=== PATIENT | female | born 1960 | race Caucasian/White ===

== ENCOUNTER → 2017-02-16 | Outpatient (CLI) | payer OTHER ==
[~2017-02-16] MED LIST: ATV1 PO; CLX20; LEVO75TA33; MULT-506; OPTIRAY 320 IV PRN
--- NOTE | 2017-02-16 14:33 | DIAGNOSTIC IMAGING REPORT ---
ABDOMEN AND PELVIS CT WITH IV AND ORAL CONTRAST CT DOSE: 1501.75 mGy.cm HISTORY: ABDOMINAL BLOATING TECHNIQUE: Multiaxial CT images of the abdomen and pelvis were performed following the use of intravenous and oral contrast. COMPARISON STUDY: None. FINDINGS: The lung bases are clear. The liver, gallbladder, adrenal glands, and pancreas are unremarkable. There are few punctate calcified granulomas within the spleen. Suspect small left renal peripelvic cysts. No hydronephrosis. The kidneys enhance normally. No retroperitoneal lymphadenopathy. The uterus is surgically absent. There is a small soft tissue linear density extending from the vaginal cuff to the S1 vertebral body. This likely represents prior sacral colpopexy. The bladder is unremarkable. No pelvic free fluid. Prior gastric bypass. There is no contrast within the excluded portion of the stomach. No bowel wall thickening or obstruction. Normal appendix. Colonic diverticulosis. IMPRESSION: 1. No bowel wall thickening or obstruction. 2. Prior gastric bypass. 3. Colonic diverticulosis. 4. Normal appendix. Electronically signed by: Rodney Celis M.D. 02/16/2017 2:32 PM Dictated Date/Time: 02/16/2017 2:21 PM
== END | disposition home or self-care (01) ==
LOC: C.CTS 12:17
PROVIDERS: ATTEND Nurse Practitioner Family
DX: R14.0 Abdominal distension (gaseous) (principal); K57.30 Diverticulosis of large intestine without perforation or abscess without bleeding; Z98.84 Bariatric surgery status

== ENCOUNTER → 2017-03-19 | Outpatient (CLI) | payer OTHER ==
[~2017-03-19] MED LIST changes: -OPTIRAY 320 IV PRN
--- NOTE | 2017-03-19 14:17 | DIAGNOSTIC IMAGING REPORT ---
MRI LUMBAR SPINE WITHOUT IV CONTRAST CLINICAL HISTORY: Low back pain and bilateral lower extremity radiculopathy. COMPARISON STUDY: Abdominal CT dated 02/16/2017. TECHNIQUE: MRI of the lumbar spine is performed utilizing various T1 and T2-weighted sequences in the axial and sagittal planes. IV contrast was not administered for this examination. FINDINGS: Lumbar spine: Vertebral body height and alignment are maintained throughout the lumbar spine. Small anterior osteophytes are seen throughout. Marrow signal intensity is slightly heterogeneous. The transverse and spinous processes are intact as imaged. There is no evidence of spondylolysis. No destructive bony lesion is seen. Mild chronic degenerative endplate change is seen at L5-S1. A tiny hemangioma is seen in the body of L4. Intervertebral discs: There is degenerative disc desiccation and loss of height seen throughout the lumbar spine. Loss of height is greatest at L3-L4 and L4-L5. Spinal cord: The partially imaged spinal cord is normal in morphology and signal intensity. The conus medullaris terminates at the level of L2. The nerve roots of the cauda equina are normal in morphology. L1-L2: Unremarkable. L2-L3: There is minimal facet arthropathy of no confluence. The central canal and neural foramina are widely patent. A small facet joint effusion is seen on the right. L3-L4: There is minimal posterior disc bulge. There is no significant acquired compromise of the central canal. The minimum AP diameter measures 10.5 mm. There is mild bilateral subarticular stenosis. Facet arthropathy is of no consequence. The neural foramina are widely patent. L4-L5: There is a posterior disc bulge with annular fissure. In conjunction with hypertrophy of the ligamentum flavum there is minimal acquired compromise of the central canal at this level. The minimum AP canal diameter measures 7.5 mm. There is bilateral subarticular stenosis. This may impinge on the exiting right L4 nerve root. L5-S1: There is minimal posterior disc bulge. The central canal and neural foramina are widely patent. Facet arthropathy is of no confluence. Sacrum: The visualized sacrum is normal in morphology and signal intensity. There is a large Tarlov cyst eccentric to the right extending from S1 to S3. This measures 6 cm in length. Soft tissues: The paraspinous soft tissues are within normal limits. The partially imaged retroperitoneal structures are grossly normal but incompletely evaluated. IMPRESSION: 1. Mild lumbosacral spondylosis with mild acquired compromise of the central canal at L4-L5. See discussion for detailed level by level analysis. 2. No destructive bony process is seen. 3. A large sacral Tarlov cyst is identified. Dictated: 03/19/2017 1:38 PM Transcribed: 03/19/2017 2:16 PM [email or web address]_Holland Electronically signed by: Aniket Betancourt M.D. 03/19/2017 2:18 PM Dictated Date/Time: 03/19/2017 1:38 PM
== END | disposition home or self-care (01) ==
LOC: C.MRIBC 12:13
PROVIDERS: ATTEND Orthopaedic Surgery Orthopaedic Surgery of the Spine
DX: M51.26 Other intervertebral disc displacement, lumbar region (principal); M48.06 Spinal stenosis, lumbar region

== ENCOUNTER → 2017-11-11 | Outpatient (CLI) | payer OTHER ==
--- NOTE | 2017-11-11 13:47 | MAMMOGRAPHY REPORT ---
BILATERAL DIGITAL SCREENING MAMMOGRAM TOMOSYNTHESIS WITH CAD: 11/11/2017 CLINICAL HISTORY: Routine screening. Patient has no complaints. TECHNIQUE: Breast tomosynthesis in addition to standard 2D mammography was performed. Current study was also evaluated with a Computer Aided Detection (CAD) system. COMPARISON: Comparison is made to exams dated: 11/04/2016 mammogram, 10/30/2015 mammogram, 4 mammogram, 10/23/2013 mammogram, 10/20/2012 mammogram, and 10/19/2011 mammogram - [facility]. BREAST COMPOSITION: The tissue of both breasts is almost entirely fatty. FINDINGS: No suspicious masses, calcifications, or areas of architectural distortion are noted in ei ther breast. There has been no significant interval change compared to prior exams. A biopsy marker clip is again noted in the left central breast. IMPRESSION: ACR BI-RADS CATEGORY 2: BENIGN There is no mammographic evidence of malignancy. A 1 year screening mammogram is recommended. The pa tient will receive written notification of the results. Approximately 10% of breast cancers are not detected with mammography. A negative mammographic report should not delay biopsy if a clinically suggestive mass is present. Marcia Ta M.D. /:11/11/2017 08:30:46 Hog Man: Savi Dawn, [facility] letter sent: Normal 1/2 BI-RADS Code: ACR BI-RADS Category 2: Benign
== END | disposition home or self-care (01) ==
LOC: C.MAMM 08:01
PROVIDERS: ATTEND Nurse Practitioner Family
DX: Z12.31 Encounter for screening mammogram for malignant neoplasm of breast (principal)

== ENCOUNTER 2020-08-02 09:18 | Observation (INO) ==
--- NOTE | 2020-07-10 08:44 | PAT Medication Instructions ---
Medication Instructions Date of Service July 10, 2020 Home Medications cholecalciferol (vitamin D3) 25 mcg (1,000 unit) capsule 25 mcg PO QPM omeprazole 10 mg capsule,delayed release 10 mg PO QPM acetaminophen [Tylenol Ex Str Arthritis Pain] 500 mg PO Q6H PRN calcium citrate-vitamin D3 [Citracal plus D] 1 tab PO QPM levothyroxine 75 mcg PO QPM multivitamin 1 tab PO QPM venlafaxine 75 mg PO QPM zolpidem 10 mg PO HS PRN Take morning of surgery With a small sip of water, OTHERWISE NOTHING TO EAT OR DRINK AFTER MIDNIGHT: acetaminophen [Tylenol Ex Str Arthritis Pain] 500 mg PO Q6H PRN (okay to take up to 4 hours prior to surgery if needed) Take evening before surgery cholecalciferol (vitamin D3) 25 mcg (1,000 unit) capsule 25 mcg PO QPM omeprazole 10 mg capsule,delayed release 10 mg PO QPM acetaminophen [Tylenol Ex Str Arthritis Pain] 500 mg PO Q6H PRN (if needed) calcium citrate-vitamin D3 [Citracal plus D] 1 tab PO QPM levothyroxine 75 mcg PO QPM multivitamin 1 tab PO QPM venlafaxine 75 mg PO QPM zolpidem 10 mg PO HS PRN (if needed) Other Notes If you have any questions please call us at [phone] or [phone] or [phone] or [phone]
--- NOTE | 2020-07-10 10:08 | Anesthesiology Consultation ---
Date of Service July 10, 2020 Assessment & Plan (1) Encounter for pre-operative examination: COVID Status: As of 07/10 assessment, patient denies travel to endemic area or symptoms of COVID19. Patient instructed that they and their household members must follow strict social distancing guidelines, wear a mask in public and avoid travel for 14 days prior to surgery. Preoperative COVID19 testing to be completed prior to surgery per surgeon's arrangements. Patient made aware to self-isolate as much as possible between COVID testing and surgery. Chart Review Chart Review: Acceptable Risk for Surgery and Patient seen in Pre Admission Testing Teaching & Discussion Instructed NPO after midnight before surgery, except medications with 15 cc of water. Medication instructions provided according to the PAT guidelines. History Surgery Operation Date: 08/02/20 12:30 Proposed Procedures p Right Total Knee Arthroplasty - Freddy Wilson DO Height/Weight Height: 5 ft 5 in Weight: 110.7 kg Allergies Allergy/AdvReac Type Severity Reaction Status Date / Time Sulfa (Sulfonamide Allergy Unknown Hives Verified 07/01/20 09:55 Antibiotics) tramadol Allergy Unknown Vomiting Verified 07/01/20 09:55 NSAIDS (Non-Steroidal AdvReac can't take Verified 07/01/20 09:55 Anti-Inflamma d/t bariatric surgery Medications Home Medications Medication Instructions Recorded Confirmed Last Taken cholecalciferol (vitamin D3) 25 25 mcg PO QPM 05/08/20 07/01/20 Unknown mcg (1,000 unit) capsule omeprazole 10 mg capsule,delayed 10 mg PO QPM 05/08/20 07/01/20 Unknown release acetaminophen [Tylenol Ex Str 500 mg PO Q6H PRN 07/01/20 07/01/20 Unknown Arthritis Pain] calcium citrate-vitamin D3 1 tab PO QPM 07/01/20 07/01/20 Unknown [Citracal plus D] levothyroxine 75 mcg PO QPM 07/01/20 07/01/20 Unknown multivitamin 1 tab PO QPM 07/01/20 07/01/20 Unknown venlafaxine 75 mg PO QPM 07/01/20 07/01/20 Unknown zolpidem 10 mg PO HS PRN 07/01/20 07/01/20 Unknown Past Medical History Medical History Bulging of intervertebral disc GERD (gastroesophageal reflux disease) Hearing deficit BL LUNDBERG History of benign breast biopsy History of in vitro fertilization History of migraine History of Mohs micrographic surgery for skin cancer Hot flashes Hypothyroidism Morbid obesity Osteoarthritis Sleep apnea "mild" - was told she could get a CPAP but not totally necessary, opted not to Spinal stenosis Squamous cell carcinoma Tarlov cyst pelvic Exercise / Class Metabolic Activity II 4-5 Yardwork/Stairs/Walk up hill Past Family History Family History Brother Diabetes Grandfather (Maternal) Diabetes Brother Colon cancer Other No family history of adverse response to anesthesia Past Surgical History Surgical History History of arthroscopy of left knee History of arthroscopy of right knee History of colonoscopy History of gastric bypass History of hysterectomy with unilateral oophorectomy History of oral surgery History of repair of rectocele History of surgery repair of bladder prolapse x 2 History of tonsillectomy History of tooth extraction Nausea and vomiting after administration of anesthetic agent Past Anesthesia History No Hx of Anesthesia Complications and No Family Hx of Anesthesia Complications History of PONV History of PONV and Hx of Motion Sickness Social History Smoking Status: Never smoker Do You Dip or Chew Tobacco: No Hx Alcohol Use: Yes Alcohol type: wine alcohol intake frequency: a few times a week Hx Substance Use: No substance use type: does not use Review of Systems Pt denies any recent chest pain, shortness of breath, palpitations, cough, fever, URI, or uncontrolled acid reflux. Physical Exam Vital Signs BP: 137/89 P: 64bpm SPO2: 96% RA T: 98.2 F R: 16 ENMT Mouth: + dental restorations (implants on L lower molars, crowns on R lower molars); no chipped teeth and no loose teeth Thyromental Distance: < 3.5 Finger Breadths (3) Mallampati Class: I Neck normal visual inspection; neck extension not limited Respiratory normal respiratory effort Auscultation: lungs clear to auscultation bilaterally Cardiovascular Rate/Rhythm: regular rate and regular rhythm Heart Sounds: + murmur (I/ systolic) Extremities: no edema Testing Laboratory Results 07/10/20 10:18 07/10/20 10:18 PT 10.5 Seconds (9.0-12.0) 07/10/20 10:18 INR 1.0 (0.9-1.1) 07/10/20 10:18 APTT 26.8 Seconds (21.0-31.0) 07/10/20 10:18 Blood Type A Positive 07/10/20 10:18 Antibody Screen NEGATIVE 07/10/20 10:18 Electrocardiogram Date: 04/25/20 Findings: + SB @ (59bpm) Chest X-Ray Date: 07/10/20 Findings: + NAD
[2020-07-10 10:50] LABS: Basophils # (auto) 0.04 K/uL (0-0.2); Basophils % (auto) 0.7 %; Eosinophils # (auto) 0.16 K/uL (0-0.5); Eosinophils % (auto) 2.8 %; Hematocrit (blood only) 41.2 % (37-47); Hemoglobin 13.4 g/dL (12.0-16.0); Lymphocytes # (auto) 1.92 K/uL (1.2-3.4); Mean Corpuscular Hemoglobin 29.6 pg (25-34); Mean Corpuscular Hgb Conc 32.5 g/dL (32-36); Mean Corpuscular Volume 90.9 fL (80-100); Monocytes # (auto) 0.49 K/uL (0.11-0.59); Monocytes % (auto) 8.7 %; Neutrophils # (auto) 3.04 K/uL (1.4-6.5); Neutrophils % (auto) 53.8 %; Platelet Count 281 K/uL (130-400); RDW Coefficient of Variation 13.5 % (11.5-14.5); RDW Standard Deviation 44.5 fL (36.4-46.3); Red Blood Count 4.53 M/uL (4.2-5.4); White Blood Count 5.65 K/uL (4.8-10.8)
[2020-07-10 11:04] LABS: Partial Thromboplastin Time 26.8 Seconds (21.0-31.0); Prothrombin Time 10.5 Seconds (9.0-12.0)
--- NOTE | 2020-07-10 11:13 | XRay Report ---
XR chest Pre-admission PA/Lat HISTORY: Preop. COMPARISON: None. FINDINGS: The lungs are clear. Cardiac silhouette is normal in size. No pleural effusions. No pneumot horax. IMPRESSION: No acute process. ACT 112: Negative or not required by law. Electronically signed by: Rodney Celis M.D. 07/10/2020 11:12 AM
[2020-07-10 11:57] LABS: BUN Creatinine Ratio 9.9 (10-20); Calcium 8.9 mg/dl (8.5-10.1); Creatinine Clr Calc Pharmacy 70.8 ml/min; Est GFR (African American) 66.6; Est GFR (Non-African American) 57.4; Potassium 4.4 mmol/L (3.5-5.1)
--- NOTE | 2020-08-01 07:00 | History & Physical Report ---
Date of Service August 01, 2020 Assessment & Plan (1) Osteoarthritis of right knee: We will proceed with a right total knee arthroplasty. She does have a history of a gastric bypass but we still feel comfortable using an enteric- coated aspirin twice a day for DVT prophylaxis. Postoperatively she will be kept overnight in the hospital for postoperative medical management. She plans to use energy physical therapy upon discharge. Present on Admission?: Yes History of Present Illness Chief Complaint: Primary osteoarthritis of the right knee Primary Care Provider: FRITZ Mccullough Odalys is a pleasant 60-year-old female who is been ill with chronic increasing right knee pain. X-rays and clinical examination are diagnostic for advanced osteoarthritis of the right knee. After failing conservative treatment, she has elected proceed with a right total knee arthroplasty. Allergies Allergy/AdvReac Type Severity Reaction Status Date / Time Sulfa (Sulfonamide Allergy Unknown Hives Verified 07/01/20 09:55 Antibiotics) tramadol Allergy Unknown Vomiting Verified 07/01/20 09:55 NSAIDS (Non-Steroidal AdvReac can't take Verified 07/01/20 09:55 Anti-Inflamma d/t bariatric surgery Home Medications Home Medications Medication Instructions Recorded Confirmed Type cholecalciferol (vitamin D3) 25 25 mcg PO QPM 05/08/20 07/01/20 History mcg (1,000 unit) capsule omeprazole 10 mg capsule,delayed 10 mg PO QPM 05/08/20 07/01/20 History release acetaminophen [Tylenol Ex Str 500 mg PO Q6H PRN 07/01/20 07/01/20 History Arthritis Pain] calcium citrate-vitamin D3 1 tab PO QPM 07/01/20 07/01/20 History [Citracal plus D] levothyroxine 75 mcg PO QPM 07/01/20 07/01/20 History multivitamin 1 tab PO QPM 07/01/20 07/01/20 History venlafaxine 75 mg PO QPM 07/01/20 07/01/20 History zolpidem 10 mg PO HS PRN 07/01/20 07/01/20 History Past Med/Surg History Medical History Bulging of intervertebral disc GERD (gastroesophageal reflux disease) Hearing deficit BL LUNDBERG History of benign breast biopsy History of in vitro fertilization History of migraine History of Mohs micrographic surgery for skin cancer Hot flashes Hypothyroidism Morbid obesity Osteoarthritis Sleep apnea "mild" - was told she could get a CPAP but not totally necessary, opted not to Spinal stenosis Squamous cell carcinoma Tarlov cyst pelvic Surgical History History of arthroscopy of left knee History of arthroscopy of right knee History of colonoscopy History of gastric bypass History of hysterectomy with unilateral oophorectomy History of oral surgery History of repair of rectocele History of surgery repair of bladder prolapse x 2 History of tonsillectomy History of tooth extraction Nausea and vomiting after administration of anesthetic agent Family History Brother Diabetes Grandfather (Maternal) Diabetes Brother Colon cancer Other No family history of adverse response to anesthesia Social History Smoking Status: Never smoker Second Hand Exposure: Yes (as a child); Do You Dip or Chew Tobacco: No; Hx Alcohol Use: Yes Alcohol type: wine Hx Substance Use: No Preferred Language: [place]ar[place]uan Communication Ability: Effective Roll Slicing Machine Tender Required: No Beliefs That Will Affect Care: None Current Living Situation: Spouse and Family Feels Safe at Home: Yes Safety Concerns: Feels Safe At This Time Review of Systems Review of Systems: All systems reviewed & are unremarkable except as noted in HPI & below Physical Exam Constitutional: WD/WN, vitals as above Eyes: PERRL, conjunctivae normal, anicteric sclerae ENMT: external ear and nose normal, oropharynx normal Neck: trachea midline, no thyromegaly Respiratory: normal respiratory effort Cardiovascular: RRR, no murmur, no edema Gastrointestinal (Abdomen): normal bowel sounds, soft, nontender, no hepatosplenomegaly Musculoskeletal: On physical examination of the right knee there is a trace effusion. There is near full range of motion and no evidence of instability. There is significant tenderness palpation along the medial and lateral joint lines and over the distal femoral condyles. Psychiatric: A+Ox3, euthymic affect Results & Data Results & Data ([facility]) Diagnostic Findings Radiographs of the right knee demonstrate advanced osteoarthritis with joint space narrowing osteophyte formation and [id number] articulation. PG Care Time/CCT Total # of Minutes Spent Total Time Spent with Patient: Total time spent is greater than 50% in coordination of care (as documented) at patient's floor/unit and/or counseling patient: Coding Level of Care Code 68967 OBS Care - Level 2 Diagnoses Osteoarthritis of right knee M17.11
[~2020-08-02 09:18] MED LIST changes: +ACETAMINOPHEN 500 MG TAB PO SCH; -ATV1 PO; +BUPIVACAINE 0.5 % 5 MG/1 ML PF 10ML VIAL ONE; +CEFAZOLIN 2000MG 2,000 MG/15 ML SYR IV SCH; -CLX20; +FAMOTIDINE 20 MG TAB PO SCH; +GABAPENTIN 600 MG DOSE PO SCH; -LEVO75TA33; +LR 500ML BOLUS, THEN 15ML/HR IV SCH; +LR 60ML/HR IV SCH; -MULT-506; +ROPIVACAINE 0.5% 5 MG/ML 30 ML VIAL ONE; +ROPIVACAINE 0.5% HCL/PF 150 MG, BUPIVACAINE 0.5% MPF 30 ML, EPINEPHrine 30MG/30ML (OR U... INSTIL SCH; +TRANEXAMIC ACID 1,000 MG **IV Intra-op IV SCH; +TRANEXAMIC ACID 1,000 MG **IV Pre-op IV SCH; +dexAMETHasone 4 MG TAB PO SCH
[2020-08-02] MEDS ORDERED: MIDAZOLAM HCL 1 MG/ML 2ML VIAL ONE (09:41)
--- NOTE | 2020-08-02 09:44 | History & Physical Bridge Note ---
Date of Service August 02, 2020 History & Physical Bridge Note I have examined the patient, reviewed the History & Physical and in the interval since the performance of the History & Physical I have noted the following changes of clinical significance: no changes noted
[2020-08-02] MEDS ORDERED: ORTHO JOINT ANESTHETIC ONE (10:05)
[2020-08-02] MEDS ORDERED: DEXAMETHASONE SOD INJ 4 MG/ML VIAL ONE (10:46)
[2020-08-02] MEDS ORDERED: BUPIVACAINE/EPINEPHRINE 0.25% 1:200,000 30 ML VIAL ONE (10:46)
--- NOTE | 2020-08-02 10:48 | Anesthesiology Consultation ---
Date of Service August 02, 2020 Assessment & Plan (1) Encounter for pre-operative examination: Chart Review Chart Review: Acceptable Risk for Surgery and Patient NOT seen in Pre Admission Testing Consults Requested none ASA ASA3 Proposed Anesthesia Anesthesia Type: MAC Spinal Regional Regional Laterality: Right Site: Adductor Canal Risk / Benefits Reviewed With: PT / POA / Parent / Guardian, Accepts Plan and Informed Consent Obtained History Surgery Operation Date: 08/02/20 11:35 Proposed Procedures p Right Total Knee Arthroplasty - Freddy Wilson DO Height/Weight Height: 5 ft 5 in Weight: 110 kg Allergies Allergy/AdvReac Type Severity Reaction Status Date / Time Sulfa (Sulfonamide Allergy Unknown Hives Verified 08/02/20 09:46 Antibiotics) tramadol Allergy Unknown Vomiting Verified 08/02/20 09:46 NSAIDS (Non-Steroidal AdvReac can't take Verified 08/02/20 09:46 Anti-Inflamma d/t bariatric surgery Medications Home Medications Medication Instructions Recorded Confirmed Last Taken cholecalciferol (vitamin D3) 25 25 mcg PO QPM 05/08/20 08/02/20 08/01/20 23:00 mcg (1,000 unit) capsule acetaminophen [Tylenol Ex Str 500 mg PO Q6H PRN 07/01/20 08/02/20 08/01/20 10:00 Arthritis Pain] calcium citrate-vitamin D3 1 tab PO QPM 07/01/20 08/02/20 08/01/20 23:00 [Citracal plus D] levothyroxine 75 mcg PO QPM 07/01/20 08/02/20 08/01/20 23:00 multivitamin 1 tab PO QPM 07/01/20 08/02/20 08/01/20 10:00 venlafaxine 75 mg PO QPM 07/01/20 08/02/20 08/01/20 23:00 zolpidem 10 mg PO HS PRN 07/01/20 08/02/20 08/01/20 23:00 Active Medications Generic Name Dose Route Start Last Admin Trade Name Freq PRN Reason Stop Dose Admin Acetaminophen 1,000 mg 08/02/20 06:00 08/02/20 10:24 Acetaminophen 500 Mg Tab PO 08/02/20 18:00 1,000 mg PREOP FANNY Administration Dexamethasone 8 mg 08/02/20 06:00 08/02/20 10:25 Dexamethasone 4 Mg Tab PO 08/02/20 18:00 8 mg PREOP FANNY Administration Famotidine 20 mg 08/02/20 06:00 08/02/20 10:25 Famotidine 20 Mg Tab PO 08/02/20 18:00 20 mg PREOP FANNY Administration Gabapentin 600 mg 08/02/20 06:00 08/02/20 10:25 Gabapentin 600 Mg Dose PO 08/02/20 18:00 600 mg PREOP FANNY Administration Lactated Ringer's 1,000 mls @ 15 mls/hr 08/02/20 06:00 08/02/20 10:23 Lr IV 08/02/20 18:00 999 mls/hr .Q24H FANNY Administration Lactated Ringer's 1,000 mls @ 60 mls/hr 08/02/20 06:00 08/02/20 09:45 Lr IV 08/02/20 22:39 Not Given .[id number] FANNY NPO Date Last Intake of Fluids: 08/01/20 Time Last Intake of Fluids: 23:00 Date Last Intake of Solids: 08/01/20 Time Last Intake of Solids: 22:00 Past Medical History Medical History Bulging of intervertebral disc GERD (gastroesophageal reflux disease) Hearing deficit BL LUNDBERG History of benign breast biopsy History of in vitro fertilization History of migraine History of Mohs micrographic surgery for skin cancer Hot flashes Hypothyroidism Morbid obesity Osteoarthritis Sleep apnea "mild" - was told she could get a CPAP but not totally necessary, opted not to Spinal stenosis Squamous cell carcinoma Tarlov cyst pelvic Exercise / Class Metabolic Activity II 4-5 Yardwork/Stairs/Walk up hill Past Family History Family History Brother Diabetes Grandfather (Maternal) Diabetes Brother Colon cancer Other No family history of adverse response to anesthesia Past Surgical History Surgical History History of arthroscopy of left knee History of arthroscopy of right knee History of colonoscopy History of gastric bypass History of hysterectomy with unilateral oophorectomy History of oral surgery History of repair of rectocele History of surgery repair of bladder prolapse x 2 History of tonsillectomy History of tooth extraction Nausea and vomiting after administration of anesthetic agent Past Anesthesia History No Hx of Anesthesia Complications and No Family Hx of Anesthesia Complications History of PONV No Hx of PONV and No Hx of Motion Sickness Social History Smoking Status: Never smoker Do You Dip or Chew Tobacco: No Hx Alcohol Use: Yes Alcohol type: wine alcohol intake frequency: a few times a week Hx Substance Use: No substance use type: does not use Physical Exam Vital Signs Last Vital Signs Temp 36.8 C 08/02/20 09:51 Pulse 69 08/02/20 09:51 Resp 20 08/02/20 09:51 BP 155/78 H 08/02/20 09:51 Pulse Ox 97 08/02/20 09:51 ENMT Mouth: no dentition abnormality Thyromental Distance: > or= 3.5 Finger Breadths Mallampati Class: II Neck normal visual inspection Respiratory normal respiratory effort Auscultation: lungs clear to auscultation bilaterally Cardiovascular Rate/Rhythm: regular rate and regular rhythm Psychiatric Orientation: alert Testing Laboratory Results 07/10/20 10:18 07/10/20 10:18 PT 10.5 Seconds (9.0-12.0) 07/10/20 10:18 INR 1.0 (0.9-1.1) 07/10/20 10:18 APTT 26.8 Seconds (21.0-31.0) 07/10/20 10:18 Blood Type A Positive 07/10/20 10:18 Antibody Screen NEGATIVE 07/10/20 10:18
[2020-08-02] MEDS ORDERED: ONDANSETRON INJ 2 MG/ML 2 ML VIAL ONE (10:55)
[2020-08-02] MEDS ORDERED: LIDOCAINE HCL 2% 2 ML VIAL/AMP(20MG/ML) INFIL ONE (11:32)
[2020-08-02] MEDS ORDERED: PROPOFOL IV EMULSION 10 MG/ML 20 ML VIAL IV ONE ×3 (11:32→12:33)
--- NOTE | 2020-08-02 12:43 | Operative Report ---
PG Post Operative Report Pre & Post Diagnosis Operation Date: 08/02/20 11:35 Pre-Op Diagnosis: Right Knee Osteoarthritis Post-Op Diagnosis: Right Knee Osteoarthritis I identified the patient and participated in the time-out.: Yes Procedure Operation Date: 08/02/20 11:35 Actual Procedures p Right Total Knee Arthroplasty(Right) - Freddy Wilson DO Surgeon Freddy Wilson DO Graphite Mill Operator Freddy Smiley PAC Estimated Blood Loss 10 Findings Consistent with Post-Op Diagnosis Specimens Right femoral and tibial bone Complications none Disposition Disposition: Recovery Room Indications Dasha is a pleasant 60-year-old female who presented my office with chronic increasing right knee pain. X-rays clinical examination are diagnostic for advanced osteoarthritis of the right knee. After failing conservative treatment, she elected to proceed with a right total knee arthroplasty. Description of Procedure Implants used: I used a Carol Ann Persona total knee arthroplasty system with a size 8 standard femur, E tibia, 32 patella, and a size 10 medial congruent polyethylene bearing. All components were cemented in place with Palacos G cement. Dasha arrived [facility] for the above procedure. She was seen in the preoperative holding area and the operative extremity was identified and signed. She was given a preoperative antibiotic, TXA, a spinal anesthetic and an adductor nerve block. She was taken back to the operating room and laid on the table in supine position. She was given basic sedation. The operative knee was then prepped and draped in sterile fashion. A timeout was done, and the patient and the operative extremity was properly identified. A midline incision was made directly over the patella. Dissection was taken down to the extensor mechanism. A subvastus arthrotomy was used. The medial retinaculum was released and the fat pad was mostly excised. The knee was flexed and the ACL, PCL, and meniscus were removed. A drill was sent down the center of the femoral canal followed by an intramedullary renuka. Off that renuka a distal femoral cutting block was placed. 9 mm was resected off the distal femur at 5 of valgus. A posterior referencing AP sizing guide was then placed on the distal femur. The femur measured to be a size 8 standard. 2 drill holes were placed in 3 of external rotation. A 4-in-1 cutting block was then impacted into place. Anterior, posterior, and chamfer cuts were then made. The proximal tibia was then exposed. An external tibial alignment guide was placed. A tibial cut guide was then anchored in place and the proximal tibia was then resected. The posterior aspect of the knee was then opened up and any additional meniscus fragments and osteophytes were removed. The tibia measured to be a size E. The tibial plate was then placed in the appropriate rotation and the tibia was drilled and punched. Trial components were then placed. I used a size 10 medial congruent polyethylene insert. The knee was brought through a full range of motion and felt to be stable. The peg holes for the femoral component were then drilled. The patella was then everted and 9 mm was resected off the posterior aspect of the patella. The patella measured to be a size 32. 3 peg holes were then drilled. A trial patella was placed. The knee was once again brought through a full range of motion and felt to be stable. Trial components were then removed. The surrounding soft tissues were injected with 100 cc of an orthopedic pain control cocktail. All components were then cemented into place with Palacos G cement. The final polyethylene insert was then snapped into place. Once cement was dry the tourniquet was deflated. Hemostasis was obtained. A dilute betadyne lavage was then done for 3 minutes. The joint was then irrigated with normal saline solution. The subvastus arthrotomy was then closed with #1 Vicryl suture. The skin was closed with 2-0 Vicryl, 3-0V lock suture, and pablo. A Silverlon and a soft compressive dressing were placed. She was then transferred to a hospital bed and taken to the postanesthesia care unit in stable condition. She tolerated the procedure well. Freddy Smiley PA-C, was present for the entire procedure. He was critical for patient positioning, prepping, draping, retraction exposure, wound closure and application of sterile dressing. I attest to the content of the Intraoperative Record and any orders documented therein. Any exceptions are noted below.
--- NOTE | 2020-08-02 13:32 | XRay Report ---
XR knee RT 1 or 2V routine CLINICAL HISTORY: Surgical Post Op DEGENERATIVE ARTHRITIS COMPARISON: April 2020 DISCUSSION: There are postsurgical changes of a total right knee arthroplasty and patellar resurfacin g. The femoral tibial components appear well seated. Overlying skin pablo are evident. There is gas within the soft tissues consistent with recent surgery IMPRESSION: Postsurgical changes of a total right knee arthroplasty. ACT 112: Negative or not required by law. Electronically signed by: Isai Tai M.D. 08/02/2020 1:31 PM
--- NOTE | 2020-08-02 14:00 | Anesthesiology Progress Note ---
Date of Service August 02, 2020 Anesthesia Post Procedure Vital Signs Vital Signs: Temp Pulse Pulse Resp BP BP Pulse Ox 08/02/20 13:50 58 L 14 150/72 H 93 08/02/20 13:40 63 16 114/76 95 08/02/20 13:30 67 15 157/77 H 98 08/02/20 13:20 66 15 139/78 100 08/02/20 13:10 69 14 140/76 100 08/02/20 13:03 36.6 C 75 14 134/71 99 08/02/20 10:40 68 20 177/94 H 100 08/02/20 09:51 36.8 C 69 20 155/78 H 97 Pain Intensity Right Knee: Pain Intensity: 1 Transfer of Care Handoff Completed per policy Notes Mental Status: alert / awake / arousable Patient Amnestic to Procedure: Yes Nausea / Vomiting: adequately controlled Pain: adequately controlled Airway Patency, RR, SpO2: stable & adequate BP & HR: stable & adequate Hydration State: stable & adequate Anesthetic Complications: no major complications apparent
[2020-08-02] MEDS ORDERED: METOCLOPRAMIDE HCL INJ 5 MG/ML 2 ML VIAL IV PRN (14:26)
[2020-08-02] MEDS ORDERED: ONDANSETRON INJ 2 MG/ML 2 ML VIAL IV PRN (14:26)
[2020-08-02] MEDS ORDERED: MAGNESIUM HYDROXIDE SUSP 30 ML UDC PO PRN (14:26)
[2020-08-02] MEDS ORDERED: bisacodyL 10 MG SUPP PR PRN (14:26)
[2020-08-02] MEDS ORDERED: HYDROmorphone INJ 0.5 MG/0.5 ML SYR IV PRN (14:26)
[2020-08-02] MEDS ORDERED: NALOXONE HCL 0.4 MG/1 ML VIAL/CARP IV PRN (14:26)
[2020-08-02] MEDS ORDERED: ZOLPIDEM TARTRATE 10 MG TAB PO PRN (14:26)
[2020-08-02] MEDS: SODIUM CHLORIDE 0.9% 1000ML 1,000 ML IV SCH (16:19)
[2020-08-02] MEDS: CEFAZOLIN 2000MG 2,000 MG/15 ML SYR IV SCH (18:46)
[2020-08-02] MEDS ORDERED: VENLAFAXINE HCL XR 75 MG CAPXR PO SCH (21:00)
[2020-08-02] MEDS ORDERED: LEVOTHYROXINE SODIUM 75 MCG TABLET PO SCH (21:00)
[2020-08-02] MEDS ORDERED: SENNA 8.6 MG TAB PO SCH (21:00)
[2020-08-02] MEDS: ACETAMINOPHEN 500 MG TAB PO SCH (21:32)
[2020-08-02] MEDS: DOCUSATE SODIUM 100 MG CAP PO SCH (21:33)
[2020-08-03] MEDS: CEFAZOLIN 2000MG 2,000 MG/15 ML SYR IV SCH (02:55)
[2020-08-03] MEDS: SODIUM CHLORIDE 0.9% 1000ML 1,000 ML IV SCH (03:02)
[2020-08-03] MEDS: ACETAMINOPHEN 500 MG TAB PO SCH ×2 (05:43→11:53)
[2020-08-03] MEDS: OXYCODONE HCL IR 5 MG TAB (IMMEDIATE RELEASE) PO PRN ×3 (06:39→12:50)
[2020-08-03 07:34] LABS: Hematocrit (blood only) 34.9 % (37-47); Hemoglobin 11.5 g/dL (12.0-16.0); Mean Corpuscular Hemoglobin 29.3 pg (25-34); Mean Corpuscular Volume 88.8 fL (80-100); Mean Platelet Volume 9.7 fL (7.4-10.4); Platelet Count 242 K/uL (130-400); RDW Coefficient of Variation 13.2 % (11.5-14.5); RDW Standard Deviation 42.8 fL (36.4-46.3); Red Blood Count 3.93 M/uL (4.2-5.4); White Blood Count 11.49 K/uL (4.8-10.8)
--- NOTE | 2020-08-03 07:38 | Orthopedic Progress Note ---
Date of Service August 03, 2020 Assessment & Plan (1) Status post right knee replacement: Overall she is doing very well. She is not having much pain in the right knee. She will be seen by physical therapy today for ambulation and range of motion exercises. She is on an enteric-coated aspirin twice a day for DVT prophylaxis. She can be discharged home later today if she is doing well. She will follow-up with orthopedics in 2 weeks. Present on Admission?: Yes Admission and Anticipated Discharge Date Admission Date: August 02, 2020 Don Lou was seen and examined at bedside this morning. Overall she is doing well. She is having too much pain in the right knee. She has been up and ambulating to the bathroom. She has no other complaints. Physical Exam Musculoskeletal: On physical examination of the right knee, the dressing is c lean and dry. Her legs out in full extension. She has active dorsiflexion plantarflexion of the right ankle. Results & Data ([facility]) Vital Signs (Past 12 Hours) Vital Signs Temp Pulse Resp BP Pulse Ox 08/03/20 02:43 36.5 C 64 16 129/77 96 08/02/20 23:05 36.6 C 76 14 120/75 91 08/02/20 20:00 36.7 C 62 16 142/74 H 98 Laboratory Results H & H 07/10/20 08/03/20 Range/Units 10:18 07:19 Hgb 13.4 11.5 L (12.0-16.0) g/dL Hct 41.2 34.9 L (37-47) % Coagulation 07/10/20 Range/Units 10:18 INR 1.0 (0.9-1.1) Diagnostic Findings Postoperative x-rays of the right knee show the prosthesis to be in anatomic alignment without any evidence of fracture, dislocation, or loosening. PG Care Time/CCT Total # of Minutes Spent Total Time Spent with Patient: Total time spent is greater than 50% in coordin ation of care (as documented) at patient's floor/unit and/or counseling patient: Coding Level of Care Code None Diagnoses Status post right knee replacement Z96.651
--- NOTE | 2020-08-03 07:39 | Discharge Summary ---
Date of Service August 03, 2020 Admission HPI Per Admitting Provider Odalys is a pleasant 60-year-old female who is been ill with chronic increasing right knee pain. X-rays and clinical examination are diagnostic for advanced osteoarthritis of the right knee. After failing conservative treatment, she has elected proceed with a right total knee arthroplasty. Principal Diagnosis Right knee replacement Discharge Data Allergies Allergy/AdvReac Type Severity Reaction Status Date / Time Sulfa (Sulfonamide Allergy Unknown Hives Verified 08/02/20 09:46 Antibiotics) tramadol Allergy Unknown Vomiting Verified 08/02/20 09:46 NSAIDS (Non-Steroidal AdvReac can't take Verified 08/02/20 09:46 Anti-Inflamma d/t bariatric surgery Consultations 08/02/20 14:26 Consult Case Management - Discharge Planning Routine Procedures Performed Operation Date: 08/02/20 11:35 Actual Procedures p Right Total Knee Arthroplasty(Right) - Freddy Wilson DO Ordered Studies 08/02/20 05:00 US - OR guided needle placemen Routine Hospital Course (1) Status post right knee replacement: On August 02, 2020 Odalys arrived at [facility] and underwent a right total knee arthroplasty without complication. She had a spinal anesthetic. Postoperatively she was started on aspirin for DVT prophylaxis and transferred to the general orthopedic floors. Her hospital course was uneventful. On postop day #1 her H&H was stable and her pain was well controlled. She was able to participate well with physical therapy doing ambulation and range of motion exercises. She was then discharged home. She will follow-up with orthopedics in 2 weeks. Total Time Total Time Spent Total Time Spent (In Minutes): 20 Discharge Plan Discharge Items Patient Disposition: Home - Home Health Services Reason For Visit: Right Knee Degenerative Joint Disease Discharge Diagnosis: Right knee replacement Activity: As commented below Non-emergency contact: Surgeon Call non-emergency contact if: your wound has increased redness and your wound has increased drainage Follow-up/Referrals: Jamia Ordoñez CRNP [Primary Care Provider] - Diet: Regular Addtl Attending Provider Instructions: Activity and Therapy Recommendations: * If you are using [facility] then therapy will be provided at your home until they feel you have accomplished all of your goals. * If you are using [facility] then Physical Therapy will be provided until they feel you are ready to start Outpatient Physical Therapy. * If you are not using home therapy then Outpatient Physical Therapy should start about 3-5 days from your day of surgery. Therapy will last about 6-10 weeks * It is important not to put a pillow under your knee when you are relaxing or sleeping. It is just as important to make sure you are getting your knee perfectly straight as it is to regain your knee bend. * You were shown a series of exercises in the hospital. Do these exercises three times each day including the exercises you were shown in physical therapy. * Get up and walk several times each day. For the first four weeks, try not to stand or walk for more than one hour at a time. If you do stand or walk for more than one hour, you will not hurt anything, but your leg will likely swell. * As you feel comfortable, you may change from the walker or crutches to a cane and then to independent walking. Medications: * Narcotic You will likely be sent home from the hospital with a prescription for the narcotic pain medication that worked best throughout your stay. * Aspirin Most patients will be required to take Aspirin 81mg twice a day for 6 weeks after surgery. This is obtained [id number] and a prescription is not necessary. * Other medications may be prescribed for specific circumstances. If you have any questions, please call the office at . * Resume previous home medications unless otherwise instructed TEDs/Elastic Stockings: The white elastic stockings help limit swelling and prevent blood clots from forming in your legs.~ The more you wear them, the more they work. Wear them for six weeks. Dressing Care: Leave the Silverlon dressing in place for 7 days. After 7 days you may remove the dressing. If the incision is not draining then you may leave the pablo open to air. If there is a little bit of drainage or if the pablo are getting stuck on your clothing then cover the incision with a dry dressing. The pablo will be removed at your 2 week follow-up appointment. Showering: You may shower with the Silverlon dressing in place. Do not let the shower spray hit the dressing directly. Pat the Silverlon dressing dry. If the dressing becomes wet underneath, then simply remove the dressing. Keep the incision dry until you are 7 days out from the day of surgery. After 7 days you may remove the Silverlon dressing and shower with the pablo exposed. Let soapy water run over the pablo and pat them dry. Do not scrub or soak the incision. Things To Watch For: * Drainage from the incision site that occurs more than one week after your surgery. * Increased redness at the incision site. * Fever above 102 degrees Fahrenheit. * Unusual chest pain or shortness of breath. * Call [facility] at with any of the above problems Follow-Up Visit: Follow-up with Dr. Wilson's PA (Freddy Smiley) 2-3 weeks after your day of surgery. He will remove your pablo and answer any questions. If you have any additional questions or concerns, Dr Wilson is usually in the office at the same time and will be available An appointment was probably scheduled when you signed-up for surgery in the office. If you have any questions call Office Instructions: More detailed instructions as well as Frequently Asked Questions were provided in a folder by our office when you signed-up for surgery. Please review these instructions when you get home. If you have any further questions or concerns, please feel free to call the office at [phone] Pending Studies at Discharge: No Stand-Alone Forms: My [facility], Smoking Cessation Medications and DC Order Prescriptions: New aspirin [Enteric Coated Aspirin] 81 mg tablet,delayed release (DR/EC) 81 mg PO BID Qty: 84 RF: 0 hydrocodone-acetaminophen [[place]] 5-325 mg tablet 1 tab PO Q6H PRN (Reason: pain) Qty: 30 RF: 0 Continued cholecalciferol (vitamin D3) 25 mcg (1,000 unit) capsule 25 mcg PO QPM RF: 0 multivitamin Tablet 1 tab PO QPM RF: 0 venlafaxine 75 mg Tablet 75 mg PO QPM RF: 0 acetaminophen [Tylenol Ex Str Arthritis Pain] 500 mg Tablet 500 mg PO Q6H PRN (Reason: Pain) RF: 0 levothyroxine 75 mcg Tablet 75 mcg PO QPM RF: 0 zolpidem 10 mg Tablet 10 mg PO HS PRN (Reason: Sleep) RF: 0 calcium citrate-vitamin D3 [Citracal plus D] 250 mg calcium- 200 unit Tablet 1 tab PO QPM RF: 0 Discharge Orders: Discharge Order (Routine); Ordered 08/03/20 Ordered By: Freddy Wilson Admission Data Admit Date/Time: 08/02/20 13:06 Attending Provider: Freddy Wilson Admit Provider: Freddy Wilson Primary Care Provider: Jamia Ordoñez Coding Level of Care Code D/C Day Management <30 mins Diagnoses Status post right knee replacement Z96.651
[2020-08-03] MEDS ORDERED: dexAMETHasone 4 MG TAB PO SCH (08:00)
[2020-08-03] MEDS ORDERED: ASPIRIN/ALUM/MAGNES/CAL CARB 325 MG TAB PO SCH (08:00)
[2020-08-03 08:05] LABS: BUN Creatinine Ratio 14.7 (10-20); Calcium 8.4 mg/dl (8.5-10.1); Creatinine Clr Calc Pharmacy 79.5 ml/min; Est GFR (Non-African American) 66.4; Potassium 3.9 mmol/L (3.5-5.1)
[2020-08-03] MEDS: DOCUSATE SODIUM 100 MG CAP PO SCH (08:43)
[2020-08-03] MEDS ORDERED: MULTIVITAMIN TAB PO SCH (09:00)
[2020-08-03] MEDS ORDERED: ASPIRIN 81 MG ECTAB PO SCH (09:00)
== END 2020-08-03 12:53 | disposition home health service (06) ==
LOC: EDSEX → 3E 09:18 → ASU 09:18

== ENCOUNTER 2024-08-28 05:24 | Observation (INO) ==
--- NOTE | 2024-07-24 14:21 | PAT Medication Instructions ---
Medication Instructions Date of Service July 24, 2024 Home Medications Medication Instructions Recorded famotidine 40 mg tablet (Pepcid) 40 mg PO HS #30 tabs 01/14/23 Continue as directed Medication List: acetaminophen 500 mg tablet 500 mg PO Q6H PRN Pain calcium citrate 250 mg calcium-vitamin D3 5 mcg (200 unit) tablet 1 tab PO QPM levothyroxine 75 mcg tablet 75 mcg PO QPM multivitamin 1 tab PO QAM venlafaxine 75 mg tablet 75 mg PO QPM famotidine 40 mg tablet (Pepcid) 40 mg PO HS losartan 50 mg tablet 50 mg PO QAM melatonin 5 mg capsule 5 mg PO HS omeprazole 20 mg capsule,delayed release 20 mg PO QAM cholecalciferol (vitamin D3) 100 mcg (4,000 unit) capsule 100 mcg PO HS diphenhydramine 25 mg-acetaminophen 500 mg tablet (Tylenol PM Extra Strength) 1 tab PO HS anastrozole 1 mg tablet 1 mg PO HS ascorbic acid (vitamin C) 500 mg chewable tablet (Vitamin C) 500 mg PO QAM ferrous sulfate 325 mg (65 mg iron) tablet (Iron (ferrous sulfate)) 325 mg PO QAM hydrochlorothiazide 25 mg tablet 25 mg PO QAM tramadol 50 mg tablet 50 mg PO Q8H PRN Pain MEDICATION INSTRUCTIONS: ASK your prescriber and surgeon anastrozole 1 mg tablet 1 mg PO HS DO NOT take the morning of surgery multivitamin 1 tab PO QAM ascorbic acid (vitamin C) 500 mg chewable tablet (Vitamin C) 500 mg PO QAM ferrous sulfate 325 mg (65 mg iron) tablet (Iron (ferrous sulfate)) 325 mg PO QAM hydrochlorothiazide 25 mg tablet 25 mg PO QAM losartan 50 mg tablet 50 mg PO QAM Take morning of surgery With a small sip of water, OTHERWISE NOTHING TO EAT OR DRINK AFTER MIDNIGHT: tramadol 50 mg tablet 50 mg PO Q8H PRN Pain acetaminophen 500 mg tablet 500 mg PO Q6H PRN Pain omeprazole 20 mg capsule,delayed release 20 mg PO QAM Take evening before surgery tramadol 50 mg tablet 50 mg PO Q8H PRN Pain acetaminophen 500 mg tablet 500 mg PO Q6H PRN Pain cholecalciferol (vitamin D3) 100 mcg (4,000 unit) capsule 100 mcg PO HS diphenhydramine 25 mg-acetaminophen 500 mg tablet (Tylenol PM Extra Strength) 1 tab PO HS melatonin 5 mg capsule 5 mg PO HS venlafaxine 75 mg tablet 75 mg PO QPM famotidine 40 mg tablet (Pepcid) 40 mg PO HS calcium citrate 250 mg calcium-vitamin D3 5 mcg (200 unit) tablet 1 tab PO QPM levothyroxine 75 mcg tablet 75 mcg PO QPM Other Notes If you have any questions please call us at [phone] or [phone] or [phone] or [phone]
--- NOTE | 2024-08-01 10:56 | Anesthesiology Consultation ---
Date of Service August 01, 2024 Assessment & Plan (1) Encounter for pre-operative examination: - Infectious disease screening: Per assessment on 08/01/24: No known recent infectious disease contacts in past 10 days (did have 07/20 Covid exposure- did not develop symptoms). Patient denies current infectious disease symptoms. - Outpatient joint assessment: Pt currently scheduled for inpatient pathway. If surgeon requests review for outpatient joint pathway, patient is not recommended candidate for outpatient joint program from anesthesia standpoint based on available information. - S/P Right TKA (08/02/2020): SAB at L3/4 + regional at [facility] - LUE limb restriction (per patient, ideal to use RUE but can use LUE if needed/necessary- "only one lymph node" removed from left side) - Hx NAION (non-arteritic anterior ischemic optic neuropathy), left eye: Patient follows with neuroophthalmologist. She states that provider has told her in the past importance of avoiding significant hypotension perioperatively when possible given this hx given that it could "trigger an attack". Note written to neuroophthalmologist requesting perioperative recommendations- Awaiting response ([facility] Neuroophthalmologist/Dr. Bates). Patient otherwise acceptable risk for surgery. Chart Review Chart Review: Patient seen in Pre Admission Testing Teaching & Discussion Pre-Anesthesia Teaching/Discussion Notes: Instructed NPO after midnight before surgery,except medications with 15 cc of water. Medication instructions provided according to the PAT guidelines. History Surgery Operation Date: 08/28/24 12:00 Proposed Procedures p Right Anterior Total Hip Arthroplasty - Freddy Wilson DO Height/Weight Height: 5 ft 5 in Weight: 107.4 kg Allergies Allergy/AdvReac Type Severity Reaction Status Date / Time NSAIDS (Non-Steroidal AdvReac Intermediate Advised to Verified 07/24/24 12:12 Anti-Inflamma avoid d/t bariatric surgery Sulfa (Sulfonamide AdvReac Intermediate Hives Verified 07/21/24 14:08 Antibiotics) Medications Home Medications Medication Instructions Recorded Confirmed Last Taken acetaminophen 500 mg tablet 500 mg PO Q6H PRN Pain 07/01/20 07/21/24 02/01/23 calcium citrate 250 mg 1 tab PO QPM 07/01/20 07/21/24 02/01/23 calcium-vitamin D3 5 mcg (200 unit) tablet levothyroxine 75 mcg tablet 75 mcg PO QPM 07/01/20 07/21/24 02/01/23 multivitamin 1 tab PO QAM 07/01/20 07/21/24 02/01/23 venlafaxine 75 mg tablet 75 mg PO QPM 07/01/20 07/21/24 02/01/23 famotidine 40 mg tablet (Pepcid) 40 mg PO HS #30 tabs 01/14/23 07/21/24 02/01/23 losartan 50 mg tablet 50 mg PO QAM 01/14/23 07/21/24 02/01/23 melatonin 5 mg capsule 5 mg PO HS 01/14/23 07/21/24 02/01/23 omeprazole 20 mg capsule,delayed 20 mg PO QAM 01/14/23 07/21/24 02/01/23 release cholecalciferol (vitamin D3) 100 100 mcg PO HS 01/27/23 07/21/24 02/01/23 mcg (4,000 unit) capsule diphenhydramine 25 1 tab PO HS 01/27/23 07/21/24 02/01/23 mg-acetaminophen 500 mg tablet (Tylenol PM Extra Strength) anastrozole 1 mg tablet 1 mg PO HS 07/21/24 07/21/24 Unknown ascorbic acid (vitamin C) 500 mg 500 mg PO QAM 07/21/24 07/21/24 Unknown chewable tablet (Vitamin C) ferrous sulfate 325 mg (65 mg 325 mg PO QAM 07/21/24 07/21/24 Unknown iron) tablet (Iron (ferrous sulfate)) hydrochlorothiazide 25 mg tablet 25 mg PO QAM 07/21/24 07/21/24 Unknown tramadol 50 mg tablet 50 mg PO Q8H PRN Pain 07/21/24 07/21/24 Unknown Past Medical History Medical History (Updated 08/02/24 @ 09:52 by Sol Burk) Anemia PCP monitoring Baseline hgb 10s Breast cancer 2022 - b/l mastectomy + with DARYL flap reconstruction LUE limb restriction (per patient, ideal to use RUE but can use LUE if needed/necessary- "only one lymph node" removed from left side) Bulging of intervertebral disc GERD (gastroesophageal reflux disease) Hearing deficit Bilateral Hearing Aids "Very impaired" without hearing aids Heart murmur Echo (11/2021): Done for murmur evaluation, no significant valvular disease found History of migraine Hot flashes Reason for Effexor HTN (hypertension) Hx of squamous cell carcinoma Hypothyroidism NAION (non-arteritic anterior ischemic optic neuropathy), left eye Obesity Osteoarthritis Sleep apnea CPAP (compliant) Spinal stenosis Tarlov cyst pelvic Exercise / Class Metabolic Activity III < 4 Walking/Shop/Light housework Past Family History Family History Brother Diabetes Grandfather (Maternal) Diabetes Brother Colon cancer Other No family history of adverse response to anesthesia Past Surgical History Surgical History History of arthroscopy of left knee History of arthroscopy of right knee History of benign breast biopsy History of colonoscopy History of gastric bypass History of hysterectomy with unilateral oophorectomy History of Mohs micrographic surgery for skin cancer Chest region History of oral surgery History of repair of rectocele History of surgery repair of bladder prolapse x 2 History of tonsillectomy History of tooth extraction Hx of bilateral mastectomy with DARYL flat reconstruction Hx of esophagogastroduodenoscopy Nausea and vomiting after administration of anesthetic agent Status post right knee replacement Right TKA (08/02/2020): SAB at L3/4 + regional at [facility] Past Anesthesia History No Hx of Anesthesia Complications and No Family Hx of Anesthesia Complications History of PONV History of PONV and Hx of Motion Sickness Social History Smoking Status: Never smoker Do You Dip or Chew Tobacco: No Hx Alcohol Use: Yes Alcohol type: wine alcohol intake frequency: a few times a month Hx Substance Use: No substance use type: does not use Review of Systems Patient denies chest pain, shortness of breath, fever, chills, cough, wheezing, palpitations. Physical Exam Vital Signs BP 111/70 P 59 TEMP 98.0 SP02 96%RA RESP 16 Physical Full cervical extension range of motion. Full TMJ range of motion. TMD 3 finger breaths Mallampati Score II Dentition: intact, + crowns/implants (sides/molars) Lungs: clear throughout to auscultation Cardiac: regular rate and rhythm, faint systolic murmur Spine: normal Carotid arteries: negative bruit Extremities: no LE edema Lab Results Anesthesia Preop Results Results Anesthesia Widget: WBC 5.15 K/ul (4.8-10.8) 08/01/24 Hgb 10.4 g/dl (12.0-16.0) L 08/01/24 Hct 34.4 % (37.0-47.0) L 08/01/24 Plt 274 K/uL (130-400) 08/01/24 Na 140 mmol/L (136-145) 08/01/24 K 3.7 mmol/L (3.5-5.1) 08/01/24 Cl 103 mmol/L (98-107) 08/01/24 CO2 30 mmol/L (21-32) 08/01/24 BUN 15 mg/dl (6-23) 08/01/24 Creat 1.01 mg/dl (0.6-1.2) 08/01/24 Glucose Level 103 mg/dl (70-99(Fasting)) H 08/01/24 PT 10.3 Seconds (9.0-12.0) 08/01/24 PTT 27 Seconds (21-31) 08/01/24 INR 0.9 (0.9-1.1) 08/01/24 Blood Type A Positive 08/01/24 Antibody Screen NEGATIVE 08/01/24 Testing Laboratory Results Stable anemia* Electrocardiogram Date: 08/01/24 SB at 59bpm. "Otherwise normal ECG" No significant change compared to 05/22/2022 per typesetting machine operator/tender comparison. Chest X-Ray Date: 08/01/24 FINDINGS: Cardiomediastinal and hilar silhouettes are within normal limits. No pneumothorax, pleural effusion or airspace consolidation. Bones appear grossly intact. Surgical clips project over the anterior chest. IMPRESSION: No acute process of the chest. Echocardiogram Date: 11/28/21 Hyperdynamic LV systolic function with no RWMA. LVEF > 70%. Mild cLVH. Grade I DD. Mild LAD. No significant valvular disease.
[2024-08-28] MEDS ORDERED: MIDAZOLAM HCL 1 MG/ML 2ML VIAL ONE (06:04)
[2024-08-28] MEDS ORDERED: PROPOFOL IV EMULSION 10 MG/ML 20 ML VIAL IV ONE (06:04)
[2024-08-28] MEDS ORDERED: KETAMINE HCL 10MG/ML SYR ONE (06:04)
[2024-08-28] MEDS: ACETAMINOPHEN 500 MG TAB PO SCH ×2 (06:05→13:04)
[2024-08-28] MEDS ORDERED: fentaNYL citrate PF 100 MCG/2 ML VIAL ONE (06:05)
[2024-08-28] MEDS: dexAMETHasone**PF** 10 MG/ML VIAL IV SCH (06:05)
[2024-08-28] MEDS: GABAPENTIN 600 MG DOSE PO SCH (06:05)
[2024-08-28] MEDS: FAMOTIDINE 20 MG TAB PO SCH (06:05)
[2024-08-28] MEDS: LR 60ML/HR IV SCH (06:06)
[2024-08-28] MEDS ORDERED: LIDOCAINE 2% 2 ML VIAL/AMP(20MG/ML) INFIL ONE (06:08)
[2024-08-28] MEDS ORDERED: BUPIVACAINE 0.5 % 5 MG/1 ML PF 10ML VIAL ONE (06:14)
[2024-08-28] MEDS ORDERED: DexMEDEtomidine HCL IV 100 MCG/ML VIAL IV ONE (06:19)
[2024-08-28] MEDS: LR 500ML BOLUS, THEN 15ML/HR IV SCH (06:30)
[2024-08-28] MEDS ORDERED: ePHEDrine sulfate 50 MG/ML AMP IV PRN (06:37)
[2024-08-28] MEDS ORDERED: fentaNYL citrate PF 100 MCG/2 ML VIAL IV PRN (06:37)
[2024-08-28] MEDS ORDERED: ATROPINE SULFATE 0.1 MG/ML 10ML SYR IV PRN (06:37)
[2024-08-28] MEDS ORDERED: ONDANSETRON INJ 2 MG/ML 2 ML VIAL IV PRN ×2 (06:37→10:18)
[2024-08-28] MEDS: TRANEXAMIC ACID 1,000 MG **IV Pre-op IV SCH (06:39)
--- NOTE | 2024-08-28 06:43 | History & Physical Bridge Note ---
Date of Service August 28, 2024 History & Physical Bridge Note I have examined the patient, reviewed the History & Physical and in the interval since the performance of the History & Physical I have noted the following changes of clinical significance: no changes noted
[2024-08-28] MEDS: ceFAZolin 2000MG 2,000 MG/15 ML SYR IV SCH ×2 (06:57→15:17)
[2024-08-28] MEDS ORDERED: ePHEDrine sulfate 50 MG/5 ML SYR ONE (07:17)
[2024-08-28] MEDS ORDERED: PHENYLEPHRINE 100MCG/ML 10ML SYR IV ONE (07:31)
[2024-08-28] MEDS ORDERED: ONDANSETRON INJ 2 MG/ML 2 ML VIAL ONE (07:34)
[2024-08-28] MEDS: ROPIV 0.5% 246mg, Ketorolac 30mg, EPINEPHrine 0.5mg in NSS INFIL SCH (07:39)
[2024-08-28] MEDS: ORTHO JOINT ANESTHETIC ONE (07:39)
[2024-08-28] MEDS: TRANEXAMIC ACID 1,000 MG **IV Intra-op IV SCH (08:09)
--- NOTE | 2024-08-28 08:13 | Operative Report ---
PG Post Operative Report Pre & Post Diagnosis Operation Date: 08/28/24 07:00 Pre-Op Diagnosis: Degenerative Joint Disease Right Hip Post-Op Diagnosis: Degenerative Joint Disease Right Hip I identified the patient and participated in the time-out.: Yes Procedure Operation Date: 08/28/24 07:00 Actual Procedures p Right Anterior Total Hip Arthroplasty(Right) - Freddy Wilson DO Surgeon Freddy Wilson DO Test Eng Freddy Smiley PA-C Estimated Blood Loss 250 Findings Consistent with Post-Op Diagnosis Specimens Right femoral head Description of Procedure Implants used I used a ZimmerBiomet total hip arthroplasty system with a size 3 high offset Avenir Complete stem, a 46 mm G7 cup with a 25mm screw, an E1 polyethylene liner, a 32 mm ceramic head with a +3.5 neck. Dasha arrived at the hospital for the above procedure. She was seen in the preoperative holding area and the operative extremity was identified and signed. She was given a spinal anesthetic, a preoperative antibiotic, and TXA. She was then taken back to the operating room and laid on the table in the supine position. She was given basic sedation. The operative leg was secured to a Puristst leg positioner. The hip was then prepped and draped in sterile fashion. A timeout was done and the patient and the operative extremity was properly identified. An anterior approach was used. Dissection was taken down through the fascia and the tensor muscle belly was retracted laterally and the rectus was retracted medially. The circumflex vessels were identified and ligated. The capsule was then incised and tagged for later repair. The femoral neck was then cut and the femoral head was removed. The acetabulum was exposed. Time was spent doing a complete circumferential labral release. Sequential reaming of the acetabulum up to a size 45 reamer was done. Final reamings were done under fluoroscopy to ensure appropriate version. A Biomet 46 mm G7 cup was then impacted into place. A single 25 mm screw was placed. The E1 polyethylene liner was then snapped into place. Surrounding soft tissues were then injected with 100 cc of an orthopedic pain control cocktail. The proximal femur was then exposed. Sequential broaching up to a size 3 broach was done. Off that broach a size 32 head with a +3.5 neck was trialed. The hip was reduced and fluoroscopic images showed anatomic alignment of the implants in acceptable length. The broach was removed. The final size 3 high offset Avenir Complete stem was then impacted into place. A ceramic 32 mm head with a +2.5 neck was then impacted onto the stem and the hip was reduced. Final fluoroscopic images showed anatomic alignment of the hip. The capsule was then closed with #1 Vicryl suture. A dilute betadyne lavage was then done for 3 minutes. The joint was then irrigated with normal saline solution. The fascia was closed with #1 PDS suture. Skin was closed with 2-0 Vicryl, pablo, and a Silverlon dressing. She was then transferred to a hospital bed and taken to the post anesthesia care unit in stable condition. She tolerated the procedure well. Freddy Smiley PA-C, was present for the entire procedure. He was critical for patient positioning, prepping, draping, retraction exposure, wound closure and application of sterile dressing. I attest to the content of the Intraoperative Record and any orders documented therein. Any exceptions are noted below.
--- NOTE | 2024-08-28 09:04 | Anesthesiology Progress Note ---
Date of Service August 28, 2024 Anesthesia Post Procedure Vital Signs Vital Signs: Temp Pulse Resp BP Pulse Ox O2 Del Method O2 Flow Rate 08/28/24 08:55 63 17 131/86 92 Room Air 08/28/24 08:45 56 L 16 128/61 100 Oxymask 6 08/28/24 08:36 36.6 C 60 16 119/64 100 Oxymask 6 08/28/24 05:50 36.8 C 63 16 135/76 92 Room Air Pain Intensity Right Hip: Pain Intensity: 1 Notes Mental Status: alert / awake / arousable Patient Amnestic to Procedure: Yes Nausea / Vomiting: adequately controlled Pain: adequately controlled Airway Patency, RR, SpO2: stable & adequate BP & HR: stable & adequate Hydration State: stable & adequate Neuraxial Anesthesia: was administered Anesthetic Complications: no major complications apparent
--- NOTE | 2024-08-28 09:06 | XRay Report ---
SINGLE VIEW PELVIS; SINGLE VIEW RIGHT HIP CLINICAL HISTORY: Postoperative examination. FINDINGS: An AP portable view of the hips and pelvis with a crosstable lateral portable view of the r ight hip are compared to study dated 08/01/2024. A bipolar right hip arthroplasty is in near-anatomic alignment. A single cortical lag screw transfixes the acetabular cup. No acute fracture is identified . There are expected postoperative changes overlying the frontal hip including skin clips, subcutaneo us gas, and soft tissue swelling. [id number] osteoarthritic changes noted in the left hip. Surg ical clips project over the left groin. IMPRESSION: Expected postoperative findings status post right hip arthroplasty. No acute fracture is seen. ACT 112: Negative or not required by law. Electronically signed by: Aniket Betancourt M.D. 08/28/2024 9:04 AM
[2024-08-28] MEDS ORDERED: bisacodyL 10 MG SUPP PR PRN (10:18)
[2024-08-28] MEDS ORDERED: METOCLOPRAMIDE HCL INJ 5 MG/ML 2 ML VIAL IV PRN (10:18)
[2024-08-28] MEDS ORDERED: NALOXONE HCL 0.4 MG/1 ML VIAL/CARP IV PRN (10:18)
[2024-08-28] MEDS ORDERED: MAGNESIUM HYDROXIDE SUSP 30 ML UDC PO PRN (10:18)
[2024-08-28] MEDS ORDERED: HYDROmorphone INJ 0.5 MG/0.5 ML SYR IV PRN (10:18)
[2024-08-28 10:30] VITALS: RESP 16
--- NOTE | 2024-08-28 10:47 | Fluoroscopy Report ---
INTRAOPERATIVE RADIOGRAPH CLINICAL HISTORY: Right hip arthroplasty placement. Fluoro time: 11 seconds Ka,r: 1.80 mGy FINDINGS: A single spot fluoroscopic image of the right hip is presented. A bipolar right hip arthrop lasty is in near anatomic alignment. A single cortical lag screw transfixes the acetabular cup. There is no evidence of acute fracture on this fluoroscopic view. IMPRESSION: Intraoperative image from a right hip arthroplasty procedure as above. Electronically signed by: Aniket Betancourt M.D. 08/28/2024 10:45 AM
[2024-08-28] MEDS: SODIUM CHLORIDE 0.9% 1,000 ML IV SCH (11:17)
[2024-08-28] MEDS: MULTIVITAMIN TAB PO SCH (11:28)
[2024-08-28] MEDS: ASPIRIN 81 MG ECTAB PO SCH (11:28)
[2024-08-28] MEDS: DOCUSATE SODIUM 100 MG CAP PO SCH (11:28)
[2024-08-28] MEDS: hydroCHLOROthiazide 25 MG TAB PO SCH (11:29)
[2024-08-28] MEDS: LOSARTAN POTASSIUM 50 MG TAB PO SCH (11:29)
[2024-08-28] MEDS: KETOROLAC 30 MG/ML VIAL IV SCH (13:00)
[2024-08-28] MEDS: oxyCODONE HCL IR 5 MG TAB (IMMEDIATE RELEASE) PO PRN (15:51)
[2024-08-28] MEDS: ANASTROZOLE 1 MG TAB PO SCH (21:18)
[2024-08-28] MEDS: LEVOTHYROXINE SODIUM 75 MCG TABLET PO SCH (21:20)
[2024-08-28] MEDS: SENNA 8.6 MG TAB PO SCH (21:20)
[2024-08-28] MEDS: VENLAFAXINE HCL XR 75 MG CAPXR PO SCH (21:21)
--- NOTE | 2024-08-29 07:21 | Orthopedic Progress Note ---
Date of Service August 29, 2024 Assessment & Plan (1) Status post right hip replacement: Overall she is doing well. She is not having much pain in the right hip. She will be seen by physical therapy today for ambulation and range of motion exercises. She is on aspirin for DVT prophylaxis. She can be discharged home later today. She will follow-up with orthopedics in 2 weeks. Subjective Dasha was seen and examined at bedside this morning. Overall she is doing very well. She is not having much pain in the right hip. She has been up and ambulating to the bathroom. She is no complaints.. Review of Systems All systems reviewed & are unremarkable except as noted in HPI & below. Physical Exam Physical examination the right hip, the dressing is clean and dry. Her leg is out full extension. She has active dorsiflexion plantarflexion of her right ankle.. Results & Data Results & Data Laboratory Results . Diagnostic Findings Postoperative x-rays of the right hip show the prosthesis to be in anatomic alignment without any evidence of fracture complication, or loosening.. PG Care Time/CCT Total # of Minutes Spent Total Time Spent with Patient: Total time spent is greater than 50% in coordination of care (as documented) at patient's floor/unit and/or counseling patient: Coding Level of Care Code 39157 Post Operative Follow-Up Diagnoses Status post right hip replacement Z96.641
--- NOTE | 2024-08-29 07:22 | Discharge Summary ---
Date of Service August 29, 2024 Principal Diagnosis Same as "Discharge Diagnosis" noted below under Discharge Instructions. Discharge Exam Physical examination the right hip, the dressing is clean and dry. Her leg is out full extension. She has active dorsiflexion plantarflexion of her right ankle.. Discharge Data Procedures Performed Operation Date: 08/28/24 07:00 Actual Procedures p Right Anterior Total Hip Arthroplasty(Right) - Freddy Wilson DO Ordered Studies 08/28/24 07:00 FL hip RT 1V Routine Hospital Course (1) Status post right hip replacement: On August 28, 2024 Dasha arrived at [facility] and underwent a right hip replacement without complication. She had a spinal anesthetic. Postoperatively she was started on aspirin for DVT prophylaxis and transferred to the general orthopedic floors. Her hospital course was uneventful. On postop day #1, her vital signs were stable and her pain was well-controlled. She was able to participate well with physical therapy doing ambulation and range of motion exercises. She was then discharged to home. She will follow-up orthopedics in 2 weeks. PG Care Time/CCT Total # of Minutes Spent Total Time Spent with Patient: Total time spent is greater than 50% in coordination of care (as documented) at patient's floor/unit and/or counseling patient: Discharge Plan Discharge Items Patient Disposition: Home - Self-Care Reason For Visit: Degenerative Joint Disease Right Hip Discharge Diagnosis: Status post right hip replacement Activity: Per Instructions section Non-emergency contact: Surgeon Call non-emergency contact if: your wound has increased redness and your wound has increased drainage Follow-up/Referrals: Jamia Ordoñez CRNP [Primary Care Provider] - Diet: Regular Addtl Attending Provider Instructions: Activity and Therapy Recommendations: * If you are using [facility] then therapy will be provided at your home until they feel you have accomplished all of your goals. * If you are using [facility] then Physical Therapy will be provided until they feel you are ready to start Outpatient Physical Therapy. * If you are not using home therapy then Outpatient Physical Therapy should start about 3-5 days from your day of surgery. Therapy will last about 6-10 weeks * You were shown a series of exercises in the hospital. Do these exercises three times each day including the exercises you were shown in physical therapy. * Get up and walk several times each day.~ For the first four weeks, try not to stand or walk for more than one hour at a time. If you do stand or walk for more than one hour, you will not hurt anything, but your leg will likely swell.~~ * As you feel comfortable, you may change from the walker or crutches to a cane and~then to independent walking. Medications: * Narcotic You will likely be sent home from the hospital with a prescription for the narcotic pain medication that worked best throughout your stay. * Cefadroxil -take the antibiotic twice a day for 10 days to help prevent infection. * Aspirin Most patients will be required to take Aspirin 81mg twice a day for 6 weeks after surgery. This is obtained [id number] and a prescription is not necessary. * Other medications may be prescribed for specific circumstances. If you have any questions, please call the office at . * Resume previous home medications unless otherwise instructed TEDs/Elastic Stockings: The white elastic stockings help limit swelling and prevent blood clots from forming in your legs. The more you wear them, the more they work. Wear them for six weeks. Dressing Care: Leave the Silverlon dressing in place for 7 days. After 7 days you may remove the dressing. If the incision is not draining then you may leave the pablo open to air. If there is a little bit of drainage or if the pablo are getting stuck on your clothing then cover the incision with a dry dressing. The pablo will be removed at your 2 week follow-up appointment. Showering: You may shower with the Silverlon dressing in place. Do not let the shower spray hit the dressing directly. Pat the Silverlon dressing dry. If the dressing becomes wet underneath, then simply remove the dressing. Keep the incision dry until you are 7 days out from the day of surgery. After 7 days you may remove the Silverlon dressing and shower with the pablo exposed. Let soapy water run over the pablo and pat them dry. Do not scrub or soak the incision. Diet: You may resume your previous diet. Things To Watch For: * Drainage from the incision site that occurs more than one week after your surgery. * Increased redness at the incision site. * Fever above 102 degrees Fahrenheit. * Unusual chest pain or shortness of breath. * Call [facility] at with any of the above problems Follow-Up Visit: Follow-up with Dr. Wilson's PA (Freddy Smiley) 2-3 weeks after your day of surgery. He will remove your pablo and answer any questions. If you have any additional questions or concerns, Dr Wilson is usually in the office at the same time and will be available An appointment was probably scheduled when you signed-up for surgery in the office. If you have any questions call Office Instructions: More detailed instructions as well as Frequently Asked Questions were provided in a folder by our office when you signed-up for surgery. Please review these instructions when you get home. If you have any further questions or concerns, please feel free to call the office at [phone] Pending Studies at Discharge: No Stand-Alone Forms: My [facility] [employer], Smoking Cessation Medications and DC Order Prescriptions: New oxycodone 5 mg Tablet 5 mg PO Q4H PRN (Reason: pain) Qty: 30 0RF cefadroxil 500 mg capsule 500 mg PO BID 10 Days Qty: 20 0RF aspirin 81 mg Tablet,Delayed Release (Dr/Ec) 81 mg PO BID 42 Days Qty: 0 0RF Continued melatonin 5 mg capsule 5 mg PO HS losartan 50 mg tablet 50 mg PO QAM omeprazole 20 mg capsule,delayed release(DR/EC) 20 mg PO QAM famotidine [Pepcid] 40 mg tablet 40 mg PO HS Qty: 30 5RF multivitamin Tablet 1 tab PO QAM venlafaxine 75 mg Tablet 75 mg PO QPM acetaminophen 500 mg Tablet 500 mg PO Q6H PRN (Reason: Pain) levothyroxine 75 mcg Tablet 75 mcg PO QPM calcium citrate-vitamin D3 250 mg calcium- 200 unit Tablet 1 tab PO QPM diphenhydramine-acetaminophen [Tylenol PM Extra Strength] 25-500 mg Tablet 1 tab PO HS cholecalciferol (vitamin D3) 100 mcg (4,000 unit) Capsule 100 mcg PO HS anastrozole 1 mg tablet 1 mg PO HS hydrochlorothiazide 25 mg tablet 25 mg PO QAM tramadol 50 mg tablet 50 mg PO Q8H PRN (Reason: Pain) ferrous sulfate [Iron (ferrous sulfate)] 325 mg (65 mg iron) Tablet 325 mg PO QAM ascorbic acid (vitamin C) [Vitamin C] 500 mg Tablet,Chewable 500 mg PO QAM Discharge Orders: Discharge Order (Routine); Ordered 08/29/24 Ordered By: Freddy Wilson Admission Data Admit Date/Time: 08/28/24 08:34 Attending Provider: Freddy Wilson Admit Provider: Freddy Wilson Primary Care Provider: Jamia Ordoñez
[2024-08-29 07:27] VITALS: BP 113/69; PULSE 61; TEMP 98.6; O2SAT 99
[2024-08-29] MEDS: dexAMETHasone 4 MG TAB PO SCH (08:17)
[2024-08-29] MEDS: FERROUS SULFATE 325 MG TAB PO SCH (08:17)
[2024-08-29] MEDS: ASCORBIC ACID 500 MG TAB PO SCH (08:17)
== END 2024-08-29 11:26 | disposition home or self-care (01) ==
LOC: 3E 05:24 → ASU 05:24

== ENCOUNTER 2025-01-19 05:23 | Observation (INO) ==
--- NOTE | 2024-12-26 12:35 | PAT Medication Instructions ---
Medication Instructions Date of Service December 26, 2024 Home Medications Medication Instructions Recorded famotidine 40 mg tablet (Pepcid) 40 mg PO HS #30 tabs 01/14/23 oxycodone 5 mg tablet 5 mg PO Q4H PRN pain #30 tabs 08/28/24 oxycodone 5 mg tablet 5 mg PO Q6H PRN pain #30 tabs 09/08/24 prednisone 10 mg tablets in a dose 10 mg PO UD #1 packet 12/04/24 pack methylprednisolone 4 mg tablets in 4 mg PO UD #21 ea 12/06/24 a dose pack (Medrol (Ian)) tramadol 50 mg tablet 50 mg PO Q8H PRN Pain #30 tabs 12/13/24 Medication List: acetaminophen 500 mg tablet 500 mg PO Q6H PRN Pain calcium 250 mg (as citrate)-vitamin D3 5 mcg (200 unit) tablet 1 tab PO QPM levothyroxine 75 mcg tablet 75 mcg PO QPM multivitamin 1 tab PO QAM venlafaxine 75 mg tablet 75 mg PO QPM famotidine 40 mg tablet (Pepcid) 40 mg PO HS melatonin 5 mg capsule 5 mg PO HS omeprazole 20 mg capsule,delayed release 20 mg PO QAM cholecalciferol (vitamin D3) 100 mcg (4,000 unit) capsule 100 mcg PO HS diphenhydramine 25 mg-acetaminophen 500 mg tablet (Tylenol PM Extra Strength) 1 tab PO HS anastrozole 1 mg tablet 1 mg PO HS ascorbic acid (vitamin C) 500 mg chewable tablet (Vitamin C) 500 mg PO QAM ferrous sulfate 325 mg (65 mg iron) tablet (Iron (ferrous sulfate)) 325 mg PO BID hydrochlorothiazide 25 mg tablet 25 mg PO QAM oxycodone 5 mg tablet 5 mg PO Q4H PRN pain oxycodone 5 mg tablet 5 mg PO Q6H PRN pain prednisone 10 mg tablets in a dose pack 10 mg PO UD methylprednisolone 4 mg tablets in a dose pack (Medrol (Ian)) 4 mg PO UD tramadol 50 mg tablet 50 mg PO Q8H PRN Pain telmisartan 40 mg tablet 40 mg PO QAM MEDICATION INSTRUCTIONS: Continue as directed prednisone 10 mg tablets in a dose pack 10 mg PO UD methylprednisolone 4 mg tablets in a dose pack (Medrol (Ian)) 4 mg PO UD ASK your prescriber and surgeon anastrozole 1 mg tablet 1 mg PO HS DO NOT take the morning of surgery telmisartan 40 mg tablet 40 mg PO QAM ascorbic acid (vitamin C) 500 mg chewable tablet (Vitamin C) 500 mg PO QAM multivitamin 1 tab PO QAM hydrochlorothiazide 25 mg tablet 25 mg PO QAM ferrous sulfate 325 mg (65 mg iron) tablet (Iron (ferrous sulfate)) 325 mg PO BID Take morning of surgery With a small sip of water, OTHERWISE NOTHING TO EAT OR DRINK AFTER MIDNIGHT: tramadol 50 mg tablet 50 mg PO Q8H PRN Pain oxycodone 5 mg tablet 5 mg PO Q4H PRN pain oxycodone 5 mg tablet 5 mg PO Q6H PRN pain acetaminophen 500 mg tablet 500 mg PO Q6H PRN Pain omeprazole 20 mg capsule,delayed release 20 mg PO QAM Take evening before surgery tramadol 50 mg tablet 50 mg PO Q8H PRN Pain oxycodone 5 mg tablet 5 mg PO Q4H PRN pain oxycodone 5 mg tablet 5 mg PO Q6H PRN pain acetaminophen 500 mg tablet 500 mg PO Q6H PRN Pain cholecalciferol (vitamin D3) 100 mcg (4,000 unit) capsule 100 mcg PO HS diphenhydramine 25 mg-acetaminophen 500 mg tablet (Tylenol PM Extra Strength) 1 tab PO HS venlafaxine 75 mg tablet 75 mg PO QPM famotidine 40 mg tablet (Pepcid) 40 mg PO HS calcium 250 mg (as citrate)-vitamin D3 5 mcg (200 unit) tablet 1 tab PO QPM melatonin 5 mg capsule 5 mg PO HS levothyroxine 75 mcg tablet 75 mcg PO QPM ferrous sulfate 325 mg (65 mg iron) tablet (Iron (ferrous sulfate)) 325 mg PO BID Other Notes If you have any questions please call us at [phone] or [phone] or [phone] or [phone]
--- NOTE | 2025-01-02 11:23 | Anesthesiology Consultation ---
Date of Service January 02, 2025 Assessment & Plan (1) Encounter for pre-operative examination: Chart Review Chart Review: Acceptable Risk for Surgery and Patient seen in Pre Admission Testing - Patient is NOT an ideal OPJ candidate (currently 23 hour obs) - LUE limb restriction (per patient, ideal to use RUE but can use LUE if needed/necessary- "only one lymph node" removed from left side) Per PAT appt on 01/02/25, no recent illness/disease exposures, illness related symptoms, or recent illness/disease positive tests. Will leave to surgeon's discretion if preop Covid testing needed - Neuroophthalmology response in regards to history of NAION (non-arteritic anterior ischemic optic neuropathy), left eye (08/02/24): "Only to avoid perioperative significant hypotension as is reasonable in the context of anesthesia. 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 Please see "Potential Strategies for Prevention" Page 5 of attached." (See attached literature scanned into chart for further details). Right Anterior Hip Arthroplasty 08/28/24= Done under SAB at L3-4. History Surgery Operation Date: 01/19/25 07:00 Proposed Procedures p Left Anterior Total Hip Arthroplasty - Freddy Wilson, DO Height/Weight Height: 5 ft 6 in Weight: 110.8 kg Allergies Allergy/AdvReac Type Severity Reaction Status Date / Time NSAIDS (Non-Steroidal AdvReac Intermediate Advised to Verified 12/26/24 11:04 Anti-Inflamma avoid d/t bariatric surgery Sulfa (Sulfonamide AdvReac Intermediate Hives Verified 12/26/24 11:04 Antibiotics) Medications Home Medications Medication Instructions Recorded Confirmed Last Taken acetaminophen 500 mg tablet 500 mg PO Q6H PRN Pain 07/01/20 12/26/24 1 Week Ago ~08/21/24 calcium 250 mg (as 1 tab PO QPM 07/01/20 12/26/24 08/27/24 21:00 citrate)-vitamin D3 5 mcg (200 unit) tablet levothyroxine 75 mcg tablet 75 mcg PO QPM 07/01/20 12/26/24 08/27/24 21:00 multivitamin 1 tab PO QAM 07/01/20 12/26/24 08/27/24 08:00 venlafaxine 75 mg tablet 75 mg PO QPM 07/01/20 12/26/24 08/27/24 21:00 famotidine 40 mg tablet (Pepcid) 40 mg PO HS #30 tabs 01/14/23 12/26/24 08/27/24 21:00 melatonin 5 mg capsule 5 mg PO HS 01/14/23 12/26/24 08/27/24 21:00 omeprazole 20 mg capsule,delayed 20 mg PO QAM 01/14/23 12/26/24 08/28/24 04:30 release cholecalciferol (vitamin D3) 100 100 mcg PO HS 01/27/23 12/26/24 08/27/24 08:00 mcg (4,000 unit) capsule diphenhydramine 25 1 tab PO HS 01/27/23 12/26/24 08/27/24 21:00 mg-acetaminophen 500 mg tablet (Tylenol PM Extra Strength) anastrozole 1 mg tablet 1 mg PO HS 07/21/24 12/26/24 08/25/24 ascorbic acid (vitamin C) 500 mg 500 mg PO QAM 07/21/24 12/26/24 08/27/24 21:00 chewable tablet (Vitamin C) ferrous sulfate 325 mg (65 mg 325 mg PO BID 07/21/24 12/26/24 08/27/24 21:00 iron) tablet (Iron (ferrous sulfate)) hydrochlorothiazide 25 mg tablet 25 mg PO QAM 07/21/24 12/26/24 08/27/24 08:00 oxycodone 5 mg tablet 5 mg PO Q4H PRN pain #30 tabs 08/28/24 12/26/24 Unknown oxycodone 5 mg tablet 5 mg PO Q6H PRN pain #30 tabs 09/08/24 12/26/24 Unknown prednisone 10 mg tablets in a dose 10 mg PO UD #1 packet 12/04/24 12/26/24 Unknown pack methylprednisolone 4 mg tablets in 4 mg PO UD #21 ea 12/06/24 12/26/24 Unknown a dose pack (Medrol (Ian)) tramadol 50 mg tablet 50 mg PO Q8H PRN Pain #30 tabs 12/13/24 12/26/24 Unknown telmisartan 40 mg tablet 40 mg PO QAM 12/26/24 12/26/24 Unknown Past Medical History Medical History Anemia PCP monitoring; takes PO iron supplements ; no recent blood or iron transfusions Baseline hgb 10s Bulging of intervertebral disc Lumbar Gastric ulcer monitoring GERD (gastroesophageal reflux disease) takes medications BID- usually well controlled - had one episode of reflux this AM (01/02/25- relieved with Tums) Hearing deficit Bilateral Hearing Aids "Very impaired" without hearing aids Heart murmur Echo (11/2021): Done for murmur evaluation, no significant valvular disease found History of migraine Hot flashes Reason for Effexor HTN (hypertension) Hx of breast cancer 2022 - b/l mastectomy + with DARYL flap reconstruction LUE limb restriction (per patient, ideal to use RUE but can use LUE if needed/necessary- "only one lymph node" removed from left side) Hx of squamous cell carcinoma Hypothyroidism NAION (non-arteritic anterior ischemic optic neuropathy), left eye Obesity Osteoarthritis Sleep apnea cpap (compliant) Spinal stenosis Lumbar Tarlov cyst pelvic Exercise / Class Metabolic Activity II 4-5 Yardwork/Stairs/Walk up hill (one flight of stairs- no chest pain or SOB ) Past Family History Family History Brother Diabetes Grandfather (Maternal) Diabetes Brother Colon cancer Other No family history of adverse response to anesthesia Past Surgical History Surgical History History of arthroscopy of left knee History of arthroscopy of right knee History of colonoscopy History of gastric bypass History of hysterectomy with unilateral oophorectomy History of Mohs micrographic surgery for skin cancer Chest region History of oral surgery History of repair of rectocele History of surgery repair of bladder prolapse x 2 History of tonsillectomy History of tooth extraction Hx of bilateral mastectomy with DARYL flat reconstruction Hx of esophagogastroduodenoscopy Nausea and vomiting after administration of anesthetic agent Status post right hip replacement Status post right knee replacement Right TKA (08/02/2020): SAB at L3/4 + regional at [facility] Past Anesthesia History No Hx of Anesthesia Complications (with exception to PONV ) and No Family Hx of Anesthesia Complications History of PONV History of PONV (improved with pre and perioperative anti nausea medications ) and Hx of Motion Sickness Social History Smoking Status: Never smoker Do You Dip or Chew Tobacco: No Hx Alcohol Use: Yes Alcohol type: wine and hard liquor alcohol intake frequency: a few times a month Hx Substance Use: No substance use type: does not use Review of Systems - Mild residual cough from URI 12/23/24 Patient denies chest pain, shortness of breath, dyspnea on exertion, wheezing, palpitations. No hx of seizures, stroke, AK. No hx of blood clots or blood transfusions Physical Exam Vital Signs VITALS BP 111/72 P 59 TEMP 97.6 SP02 97% RESP 16 Constitutional no acute distress ENMT Mouth: no TMJ clicking Thyromental Distance: > or= 3.5 Finger Breadths (3.5) Mallampati Class: I - Crowns to molars - Permanent implants to side teeth Neck neck extension not limited Respiratory normal respiratory effort; no respiratory distress Auscultation: lungs clear to auscultation bilaterally; no wheezes Cardiovascular Rate/Rhythm: regular rate and regular rhythm Heart Sounds: + murmur (II-III/ murmur ) Vessels: no carotid bruit Musculoskeletal Spine: no pain with cervical ROM Extremities: extremities normal to inspection Psychiatric Orientation: alert Lab Results Anesthesia Preop Results Results Anesthesia Widget: WBC 7.44 K/ul (4.8-10.8) 01/02/25 Hgb 11.3 g/dl (12.0-16.0) L 01/02/25 Hct 35.1 % (37.0-47.0) L 01/02/25 Plt 360 K/uL (130-400) 01/02/25 Na 142 mmol/L (136-145) 01/02/25 K 4.1 mmol/L (3.5-5.1) 01/02/25 Cl 105 mmol/L (98-107) 01/02/25 CO2 32 mmol/L (21-32) 01/02/25 BUN 19 mg/dl (6-23) 01/02/25 Creat 1.01 mg/dl (0.6-1.2) 01/02/25 Glucose Level 94 mg/dl (70-99(Fasting)) 01/02/25 PT 10.2 Seconds (9.0-12.0) 01/02/25 PTT 26 Seconds (21-31) 01/02/25 INR 0.9 (0.9-1.1) 01/02/25 Blood Type A Positive 01/02/25 Antibody Screen NEGATIVE 01/02/25 Testing Laboratory Results Anemia- chronic - improved from previous Electrocardiogram Date: 01/02/25 Findings: + NSR @ (63bpm) Normal EKG per cardio Chest X-Ray Date: 08/01/24 FINDINGS: Cardiomediastinal and hilar silhouettes are within normal limits. No pneumothorax, pleural effusion or airspace consolidation. Bones appear grossly intact. Surgical clips project over the anterior chest. IMPRESSION: No acute process of the chest. Echocardiogram Date: 11/28/21 Hyperdynamic LV systolic function with no RWMA. LVEF > 70%. Mild cLVH. Grade I DD. Mild LAD. No significant valvular disease.
[2025-01-19] MEDS: GABAPENTIN 600 MG DOSE PO SCH (06:04)
[2025-01-19] MEDS: FAMOTIDINE 20 MG TAB PO SCH (06:04)
[2025-01-19] MEDS: ACETAMINOPHEN 500 MG TAB PO SCH ×2 (06:04→14:00)
[2025-01-19] MEDS: LR 60ML/HR IV SCH (06:05)
[2025-01-19] MEDS: dexAMETHasone**PF** 10 MG/ML VIAL IV SCH (06:05)
[2025-01-19] MEDS: LR 500ML BOLUS, THEN 15ML/HR IV SCH (06:05)
[2025-01-19] MEDS ORDERED: BUPIVACAINE 0.5 % 5 MG/1 ML PF 10ML VIAL ONE (06:25)
--- NOTE | 2025-01-19 06:33 | History & Physical Bridge Note ---
Date of Service January 19, 2025 History & Physical Bridge Note I have examined the patient, reviewed the History & Physical and in the interval since the performance of the History & Physical I have noted the following changes of clinical significance: no changes noted
[2025-01-19] MEDS ORDERED: PHENYLEPHRINE 100MCG/ML 5ML SYR IV PRN (06:40)
[2025-01-19] MEDS ORDERED: ATROPINE SULFATE 0.1 MG/ML 10ML SYR IV PRN (06:40)
[2025-01-19] MEDS ORDERED: ONDANSETRON INJ 2 MG/ML 2 ML VIAL IV PRN ×2 (06:40→09:35)
[2025-01-19] MEDS ORDERED: ePHEDrine sulfate 50 MG/ML AMP IV PRN (06:40)
[2025-01-19] MEDS ORDERED: fentaNYL citrate PF 100 MCG/2 ML VIAL IV PRN (06:40)
[2025-01-19] MEDS ORDERED: PROPOFOL IV EMULSION 10 MG/ML 20 ML VIAL IV ONE ×2 (06:42→08:13)
[2025-01-19] MEDS ORDERED: fentaNYL citrate PF 100 MCG/2 ML VIAL ONE (06:43)
[2025-01-19] MEDS ORDERED: MIDAZOLAM HCL 1 MG/ML 2ML VIAL ONE ×2 (06:43→07:15)
[2025-01-19] MEDS: TRANEXAMIC ACID 1,000 MG **IV Pre-op IV SCH (06:47)
[2025-01-19] MEDS: ceFAZolin 2000MG 2,000 MG/15 ML SYR IV SCH ×2 (06:56→14:00)
[2025-01-19] MEDS ORDERED: KETAMINE HCL 10MG/ML SYR ONE (07:05)
[2025-01-19] MEDS ORDERED: DexMEDEtomidine HCL IV 100 MCG/ML VIAL IV ONE (07:08)
[2025-01-19] MEDS ORDERED: ePHEDrine sulfate 50 MG/ML AMP ONE ×2 (07:11→07:23)
[2025-01-19] MEDS ORDERED: ONDANSETRON INJ 2 MG/ML 2 ML VIAL ONE (07:11)
[2025-01-19] MEDS ORDERED: LIDOCAINE 2% 2 ML VIAL/AMP(20MG/ML) INFIL ONE (07:28)
[2025-01-19] MEDS ORDERED: PHENYLEPHRINE 100MCG/ML 5ML SYR ONE (07:29)
[2025-01-19] MEDS ORDERED: ePHEDrine sulfate 50 MG/5 ML SYR ONE (07:29)
[2025-01-19] MEDS ORDERED: PHENYLEPHRINE HCL 10 MG/ML VIAL ONE (07:34)
[2025-01-19] MEDS: ROPIV 0.5% 246mg, Ketorolac 30mg, EPINEPHrine 0.5mg in NSS INFIL SCH (07:42)
[2025-01-19] MEDS: ORTHO JOINT ANESTHETIC ONE (07:43)
[2025-01-19] MEDS: TRANEXAMIC ACID 1,000 MG **IV Intra-op IV SCH (08:08)
--- NOTE | 2025-01-19 08:13 | Operative Report ---
PG Post Operative Report Pre & Post Diagnosis Operation Date: 01/19/25 07:00 Pre-Op Diagnosis: Left Hip Arthritis Post-Op Diagnosis: Left Hip Arthritis I identified the patient and participated in the time-out.: Yes Procedure Operation Date: 01/19/25 07:00 Actual Procedures p Left Anterior Total Hip Arthroplasty, Uncemented(Left) - Freddy Wilson DO Surgeon Freddy Wilson DO Curb Setter Calvin Acharya PA-C Estimated Blood Loss 250 Findings Consistent with Post-Op Diagnosis Specimens Left femoral head Description of Procedure Implants used I used a ZimmerBiomet total hip arthroplasty system with a size 3 high offset Avenir Complete stem, a 46 mm G7 cup with a 25mm screw, an E1 polyethylene liner, a 32 mm ceramic head with a +3.5 neck. Dasha arrived at the hospital for the above procedure. She was seen in the preoperative holding area and the operative extremity was identified and signed. She was given a spinal anesthetic, a preoperative antibiotic, and TXA. She was then taken back to the operating room and laid on the table in the supine position. She was given basic sedation. The operative leg was secured to a Puristst leg positioner. The hip was then prepped and draped in sterile fashion. A timeout was done and the patient and the operative extremity was properly identified. An anterior approach was used. Dissection was taken down through the fascia and the tensor muscle belly was retracted laterally and the rectus was retracted medially. The circumflex vessels were identified and ligated. The capsule was then incised and tagged for later repair. The femoral neck was then cut and the femoral head was removed. The acetabulum was exposed. Time was spent doing a complete circumferential labral release. Sequential reaming of the acetabulum up to a size 45 reamer was done. Final reamings were done under fluoroscopy to ensure appropriate version. A Biomet 46 mm G7 cup was then impacted into place. A single 25 mm screw was placed. The E1 polyethylene liner was then snapped into place. Surrounding soft tissues were then injected with 100 cc of an orthopedic pain control cocktail. The proximal femur was then exposed. Sequential broaching up to a size 3 broach was done. Off that broach a size 32 head with a +3.5 neck was trialed. The hip was reduced and fluoroscopic images showed anatomic alignment of the implants in acceptable length. The broach was removed. The final size 3 high offset Avenir Complete stem was then impacted into place. A ceramic 32 mm head with a +3.5 neck was then impacted onto the stem and the hip was reduced. Final fluoroscopic images showed anatomic alignment of the hip. The capsule was then closed with #1 Vicryl suture. A dilute betadyne lavage was then done for 3 minutes. The joint was then irrigated with normal saline solution. The fascia was closed with #1 PDS suture. Skin was closed with 2-0 Vicryl, pablo, and a Silverlon dressing. She was then transferred to a hospital bed and taken to the post anesthesia care unit in stable condition. She tolerated the procedure well. Calvin Acharya PA-C, was present for the entire procedure. He was critical for patient positioning, prepping, draping, retraction exposure, wound closure and application of sterile dressing. I attest to the content of the Intraoperative Record and any orders documented therein. Any exceptions are noted below.
--- NOTE | 2025-01-19 08:31 | Fluoroscopy Report ---
FL hip LT 1V CLINICAL HISTORY: LEFT ANTEIROR HIP COMPARISON STUDY: None FLUOROSCOPY TIME: 14 seconds FLUOROSCOPY IMAGES: 1 EXPOSURE DOSE: 1.6 mGy FINDINGS: Fluoroscopy was provided for left hip prosthesis. IMPRESSION: Intraoperative fluoroscopy. ACT 112: Negative or not required by law. Electronically signed by: Myke Lee M.D. 01/19/2025 8:30 AM
--- NOTE | 2025-01-19 09:17 | XRay Report ---
XR hip 1V LT w pelvis CLINICAL HISTORY: IN PACU - Post Surgical COMPARISON: 08/28/2024 FINDINGS: Bilateral hip prostheses show no hardware complication. There is expected soft tissue gas on the left with lateral skin pablo. IMPRESSION: Unremarkable postoperative exam. ACT 112: Negative or not required by law. Electronically signed by: Myke Lee M.D. 01/19/2025 9:16 AM
[2025-01-19] MEDS ORDERED: MAGNESIUM HYDROXIDE SUSP 30 ML UDC PO PRN (09:35)
[2025-01-19] MEDS ORDERED: METOCLOPRAMIDE HCL INJ 5 MG/ML 2 ML VIAL IV PRN (09:35)
[2025-01-19] MEDS ORDERED: bisacodyL 10 MG SUPP PR PRN (09:35)
[2025-01-19] MEDS ORDERED: NALOXONE HCL 0.4 MG/1 ML VIAL/CARP IV PRN (09:35)
[2025-01-19] MEDS ORDERED: HYDROmorphone INJ 0.5 MG/0.5 ML SYR IV PRN (09:35)
[2025-01-19] MEDS: KETOROLAC TROMETHAMINE 15 MG/ML VIAL IV SCH (10:00)
[2025-01-19] MEDS: hydroCHLOROthiazide 25 MG TAB PO SCH (10:24)
[2025-01-19] MEDS: PANTOprazole 40 MG TAB PO SCH (10:24)
[2025-01-19] MEDS: DOCUSATE SODIUM 100 MG CAP PO SCH (10:24)
[2025-01-19] MEDS: LOSARTAN POTASSIUM 50 MG TAB PO SCH (11:11)
[2025-01-19] MEDS: MULTIVITAMIN TAB PO SCH (11:11)
[2025-01-19] MEDS ORDERED: ceFAZolin 1000MG 1,000 MG/7.5 ML SYR IV SCH (14:45)
--- NOTE | 2025-01-19 15:11 | Anesthesiology Progress Note ---
Date of Service January 19, 2025 Anesthesia Post Procedure Vital Signs Vital Signs: Temp Pulse Pulse Resp BP Pulse Ox O2 Del Method 01/19/25 12:35 36.4 C L 90 16 125/65 98 Room Air 01/19/25 11:35 36.4 C L 86 16 129/65 100 Nasal Cannula 01/19/25 11:05 16 100 Nasal Cannula 01/19/25 10:35 36.5 C 82 16 120/60 100 Nasal Cannula 01/19/25 10:05 16 Nasal Cannula 01/19/25 10:00 36.5 C 78 16 125/64 99 Nasal Cannula 01/19/25 09:35 36.4 C 75 16 134/73 93 Nasal Cannula 01/19/25 09:10 36.4 C L 75 18 132/67 98 Nasal Cannula 01/19/25 09:00 81 18 100/48 L 96 Nasal Cannula 01/19/25 08:50 85 21 131/53 L 100 Oxymask 01/19/25 08:40 36.7 C 80 20 131/67 100 Oxymask 01/19/25 05:51 37.0 C 64 18 142/69 H 96 Room Air O2 Flow Rate 01/19/25 12:35 01/19/25 11:35 2 01/19/25 11:05 2 01/19/25 10:35 2 01/19/25 10:05 2 01/19/25 10:00 2 01/19/25 09:35 2 01/19/25 09:10 2 01/19/25 09:00 2 01/19/25 08:50 4 01/19/25 08:40 4 01/19/25 05:51 Transfer of Care Handoff Completed per policy Notes Mental Status: alert / awake / arousable and participated in evaluation Patient Amnestic to Procedure: Yes Nausea / Vomiting: adequately controlled Pain: adequately controlled Airway Patency, RR, SpO2: stable & adequate BP & HR: stable & adequate Hydration State: stable & adequate Neuraxial Anesthesia: was administered and sensory block is resolving Anesthetic Complications: no major complications apparent and Pt Satisfied with anesthetic care
[2025-01-19 20:07] VITALS: RESP 18
[2025-01-19] MEDS: SENNA 8.6 MG TAB PO SCH (20:38)
[2025-01-19] MEDS: LEVOTHYROXINE SODIUM 75 MCG TABLET PO SCH (20:38)
[2025-01-19] MEDS: VENLAFAXINE HCL XR 75 MG CAPXR PO SCH (20:38)
[2025-01-19] MEDS: ASPIRIN 81 MG ECTAB PO SCH (20:38)
[2025-01-19] MEDS: FAMOTIDINE 40 MG TABLET PO SCH (20:38)
[2025-01-19] MEDS: ANASTROZOLE 1 MG TAB PO SCH (20:38)
[2025-01-19] MEDS: oxyCODONE HCL IR 5 MG TAB (IMMEDIATE RELEASE) PO PRN (22:44)
[2025-01-20 07:02] VITALS: BP 126/70; PULSE 68; TEMP 98.2; O2SAT 99
--- NOTE | 2025-01-20 08:01 | Orthopedic Progress Note ---
Date of Service January 20, 2025 Assessment & Plan (1) Status post left hip replacement: We will get the dressing changed this morning. I also started her on some gabapentin to help with some of the nerve pain. I gave her prescription to go home with as well. She can be seen by physical therapy today for ambulation and range of motion exercises. She is orthopedically stable for discharge later today. She will follow-up with orthopedics in 2 weeks. Don Lou was seen and examined at bedside this morning. Overall she is doing okay but she has some concerns. She had a little bit of drainage through her dressing last night. She is having some increased nerve pain laterally that she does not remember from the other side. She had no acute events overnight. Review of Systems All systems reviewed & are unremarkable except as noted in HPI & below. Physical Exam On physical exam of the left hip, the dressing is saturated with some bloody dr andreas. There is a reinforcement on it laterally. Her leg lengths are equal. She is active dorsiflexion plantarflexion of her left ankle. She has some numbness over the lateral side of her hip.. Results & Data Results & Data Laboratory Results . Diagnostic Findings Postoperative x-rays the left hip show the prosthesis to be in anatomic alignment without any evidence of fracture complication, or loosening.. PG Care Time/CCT Total # of Minutes Spent Total Time Spent with Patient: Total time spent is greater than 50% in coordination of care (as documented) at patient's floor/unit and/or counseling patient: Coding Level of Care Code 54753 Post Operative Follow-Up Diagnoses Status post left hip replacement Z96.642
--- NOTE | 2025-01-20 08:03 | Discharge Summary ---
Date of Service January 20, 2025 Principal Diagnosis Same as "Discharge Diagnosis" noted below under Discharge Instructions. Discharge Exam On physical exam of the left hip, the dressing is saturated with some bloody drainage. There is a reinforcement on it laterally. Her leg lengths are equal. She is active dorsiflexion plantarflexion of her left ankle. She has some numbness over the lateral side of her hip.. Discharge Data Procedures Performed Operation Date: 01/19/25 07:00 Actual Procedures p Left Anterior Total Hip Arthroplasty, Uncemented(Left) - Freddy Wilson DO Ordered Studies 01/19/25 07:00 FL hip LT 1V Routine Hospital Course (1) Status post left hip replacement: On January 19, 2025 Odalys arrived at [facility] and underwent a left hip replacement without complication. She had a spinal anesthetic. Postoperatively, she was started on aspirin for DVT prophylaxis and transferred to the general orthopedic floors. Her hospital course was relatively uneventful. On postop day #1, her vital signs were stable. She was having some drainage through the dressing and some increased nerve pain laterally. I started her on some gabapentin and the dressing was changed. She was seen by physical therapy. She was then discharged to home. She will follow-up with orthopedics in 2 weeks. PG Care Time/CCT Total # of Minutes Spent Total Time Spent with Patient: Total time spent is greater than 50% in coordination of care (as documented) at patient's floor/unit and/or counseling patient: Discharge Plan Discharge Items Patient Disposition: Home - Self-Care Reason For Visit: Left Hip Arthritis Discharge Diagnosis: Left hip replacement Activity: Per Instructions section Non-emergency contact: Surgeon Call non-emergency contact if: your wound has increased redness and your wound has increased drainage Follow-up/Referrals: Jamia Ordoñez CRNP [Primary Care Provider] - Diet: Regular Addtl Attending Provider Instructions: Activity and Therapy Recommendations: * If you are using [facility] then therapy will be provided at your home until they feel you have accomplished all of your goals. * If you are using [facility] then Physical Therapy will be provided until they feel you are ready to start Outpatient Physical Therapy. * If you are not using home therapy then Outpatient Physical Therapy should start about 3-5 days from your day of surgery. Therapy will last about 6-10 weeks * You were shown a series of exercises in the hospital. Do these exercises three times each day including the exercises you were shown in physical therapy. * Get up and walk several times each day.~ For the first four weeks, try not to stand or walk for more than one hour at a time. If you do stand or walk for more than one hour, you will not hurt anything, but your leg will likely swell.~~ * As you feel comfortable, you may change from the walker or crutches to a cane and~then to independent walking. Medications: * Narcotic You will likely be sent home from the hospital with a prescription for the narcotic pain medication that worked best throughout your stay. * Cefadroxil -take the antibiotic twice a day for 10 days to help prevent infection. * Aspirin - take aspirin for 2 weeks after the surgery. Keep your stockings on for 6 weeks. * Other medications may be prescribed for specific circumstances. If you have any questions, please call the office at . * Resume previous home medications unless otherwise instructed TEDs/Elastic Stockings: The white elastic stockings help limit swelling and prevent blood clots from forming in your legs. The more you wear them, the more they work. Wear them for six weeks. Dressing Care: Leave the Silverlon dressing in place for 7 days. After 7 days you may remove the dressing. If the incision is not draining then you may leave the pablo open to air. If there is a little bit of drainage or if the pablo are getting stuck on your clothing then cover the incision with a dry dressing. The pablo will be removed at your 2 week follow-up appointment. Showering: You may shower with the Silverlon dressing in place. Do not let the shower spray hit the dressing directly. Pat the Silverlon dressing dry. If the dressing becomes wet underneath, then simply remove the dressing. Keep the incision dry until you are 7 days out from the day of surgery. After 7 days you may remove the Silverlon dressing and shower with the pablo exposed. Let soapy water run over the pablo and pat them dry. Do not scrub or soak the incision. Diet: You may resume your previous diet. Things To Watch For: * Drainage from the incision site that occurs more than one week after your surgery. * Increased redness at the incision site. * Fever above 102 degrees Fahrenheit. * Unusual chest pain or shortness of breath. * Call [facility] at with any of the above problems Follow-Up Visit: Follow-up with Dr. Wilson's office 2-3 weeks after your day of surgery. We will remove your pablo and answer any questions. If you have any additional questions or concerns, Dr Wilson is usually in the office at the same time and will be available An appointment was probably scheduled when you signed-up for surgery in the office. If you have any questions call Office Instructions: More detailed instructions as well as Frequently Asked Questions were provided in a folder by our office when you signed-up for surgery. Please review these instructions when you get home. If you have any further questions or concerns, please feel free to call the office at [phone] Pending Studies at Discharge: No Stand-Alone Forms: My [facility], Smoking Cessation Medications and DC Order Prescriptions: New cefadroxil 500 mg capsule 500 mg PO BID 10 Days Qty: 20 0RF oxycodone 5 mg tablet 5 mg PO Q6H PRN (Reason: pain) Qty: 30 0RF aspirin 81 mg Tablet,Delayed Release (Dr/Ec) 81 mg PO BID 14 Days Qty: 0 0RF Continued tramadol 50 mg tablet 50 mg PO Q8H PRN (Reason: Pain) Qty: 30 0RF melatonin 5 mg capsule 5 mg PO HS famotidine [Pepcid] 40 mg tablet 40 mg PO HS Qty: 30 5RF multivitamin Tablet 1 tab PO QAM venlafaxine 75 mg Tablet 75 mg PO QPM acetaminophen 500 mg Tablet 500 mg PO Q6H PRN (Reason: Pain) levothyroxine 75 mcg Tablet 75 mcg PO QPM calcium citrate-vitamin D3 250 mg calcium- 200 unit Tablet 1 tab PO QPM diphenhydramine-acetaminophen [Tylenol PM Extra Strength] 25-500 mg Tablet 1 tab PO HS cholecalciferol (vitamin D3) 100 mcg (4,000 unit) Capsule 100 mcg PO HS anastrozole [Arimidex] 1 mg tablet 1 mg PO HS hydrochlorothiazide 25 mg tablet 25 mg PO QAM ferrous sulfate [Iron (ferrous sulfate)] 325 mg (65 mg iron) Tablet 325 mg PO BID ascorbic acid (vitamin C) [Vitamin C] 500 mg Tablet,Chewable 500 mg PO QAM telmisartan [Micardis] 40 mg Tablet 40 mg PO QAM esomeprazole magnesium [Nexium] 20 mg Capsule,Delayed Release(Dr/Ec) 20 mg PO DAILY No Action gabapentin 100 mg capsule 100 mg PO TID PRN (Reason: pain, severe) Qty: 90 2RF Rx Instructions: 100 mg 3x a day for 3 days then 200 mg 3x a day for 3 days then 300 mg 3 x a day Discharge Orders: Discharge Order (Routine); Ordered 01/20/25 Ordered By: Freddy Wilson Admission Data Admit Date/Time: 01/19/25 08:43 Attending Provider: Freddy Wilson Admit Provider: Freddy Wilson Primary Care Provider: Jamia Ordoñez
[2025-01-20] MEDS: dexAMETHasone 4 MG TAB PO SCH (08:04)
[2025-01-20] MEDS: GABAPENTIN 100 MG CAP PO SCH (08:27)
== END 2025-01-20 10:42 | disposition home or self-care (01) ==
LOC: 3E 05:23 → ASU 05:23